=== PATIENT | male | born 1950 | race Caucasian/White ===

== ENCOUNTER 2019-12-14 22:02 | Inpatient (IN) | payer MEDICARE ==
[~2019-12-14] VITALS: Ht 193 cm; Wt 108.9 kg
--- OUTSIDE RECORDS SUMMARY | 2019-12-14 22:05 | XMS REPORT | Continuity of Care Document ---
Author Author [facility] t Organization [facility] Address [address] [place] [id number] Phone Unavailable Care Team Providers Care Promotional Marketing Agent Name Role Phone NONSTAFF PCP Unavailable Madhuri MARTINEZ Attwilder Unavailable Payers Payer Name Policy Type Policy Number Effective Date Expiration Date S cami Medicare A & B [id number] 1981 00:00:00 Star [facility] Problems This patient has no known problems. Allergies, Adverse Reactions, Alerts Allergy Name Allergy Type Status Severity Reaction(s) Onset Date Inacti ve Date Treating Clinician Comments Source Penicillins DA Active MO 2019-10-13 00:00:00 [facility] Penicillin Allergy to Substance Active 2019-04-25 00:00:00 [facility] Penicillins DA Active MO 2016-01-26 00:00:00 [facility] Medications This patient has no known medications. Procedures Procedure Date / Time Performed Performing Clinician Sour e Computed tomography of abdomen and pelvis with contrast 2018 00:00:00 NABOR HOYOS [facility] Encounters Start Date/Time End Date/Time Encounter Type Admission Type Attendi [facility] Facility Care Department Encounter ID Source 2019-04-25 12:42:00 2019-04-25 16:02:00 Departed Emergency Room 1 JOE MARTINEZ [facility] [id number] [facility] 2017-03-06 00:01:00 2017-03-06 00:01:00 Outpatient C [facility] [id number] [facility] 2017-02-03 00:01:00 2017-02-03 00:01:00 Outpatient [facility] [id number] [facility] 2017-01-03 00:01:00 2017-01-03 00:01:00 Outpatient [facility] [id number] [facility] 2016-12-04 00:01:00 2016-12-04 00:01:00 Outpatient [facility] [id number] [facility] 2016-11-25 13:00:00 2016-11-25 13:00:00 Outpatient [facility] [id number] [facility] Results Test Description Test Time Test Comments Results Result Comments Source - CT ABD PELVIS W/CONT 2019-10-13 22:39:00 Dmitriy e: NICOLAS HI [facility] : 1950 Age/S: 69 / M [address] [facility] Unit #: [id number] Loc: [place] [address] Phys: Daniela Sebastian [employer]TER Acct: [id number] Dis Date: Status: REG ER PHONE #: [phone] Exam Date: 10/13/2019 2210 FAX #: [phone] Reason: increased r hernia pain EXAMS: CPT CODE: [id number] CT ABD PELVIS W/CONT [id number] EXAM: CT ABDOMEN AND PELVIS WITH IV CONTRAST DICTATION LOCATION: 8 HISTORY: Male, 69 years of age with increasing right hernia pain TECHNIQUE: Contrast: Nonionic IV contrast was given. No GI contrast was given. Portal venous phase: Abdomen and pelvis Delayed phase: Abdomen and pelvis Reconstructions: Coronal and sagittal One or more of the following dose reduction techniques were used: Automated exposure control; adjustment of the mA and/or kV according to the patient size; and/or use of iterative reconstruction technique. COMPARISON: Previous CT chest abdomen and pelvis performed 01/26/2016 FINDINGS: Statements: Exam quality is acceptable. Lower thorax: Atelectasis seen in both lung bases. Calcified granuloma seen in the right middle lobe. Hepatobiliary: Liver is unremarkable except for multiple benign cysts measuring up to 3 cm diameter. No solid hepatic mass. The gallbladder is normal. No biliary dilation. Pancreas: Normal. Spleen: Normal. Adrenals: Normal. Genitourinary: No solid renal mass, significant cortical thinning, obvious renal stone or hydronephrosis. Ureters are unremarkable. Urinary bladder is unremarkable. The visualized reproductive organs are unremarkable. Gastrointestinal: No bowel wall thickening, bowel obstruction or perienteric inflammation. The appendix is normal. Vascular: Atherosclerotic calcifications are seen within the aorta and branch vessels. No aneurysm or dissection. IVC is unremarkable. Portal vein is patent. PAGE 1 Signed Report (CONTINUED) Name: NICOLAS HI [facility] : 1950 Age/S: 69 / M [address] [facility] Unit #: [id number] Loc: [place] [address] Phys: Daniela Sebastian NP Acct: [id number] Dis Date: Status: REG ER PHONE #: [phone] Exam Date: 10/13/20192209 FAX #: [phone] Reason: increased r hernia pain EXAMS: CPT CODE: [id number] CT ABD PELVIS W/CONT 07040 <Continued> Lymphatics: No enlarged lymph nodes by CT size criteria. Bones/Soft Tissues: No acute osseous findings. No ventral hernias. Peritoneum/Other: No free intraperitoneal air. Small amount of free fluid seen in posterior cul-de-sac. IMPRESSION: 1. Small amount of free fluid in pelvis. 2. No ventral hernias are identified. 3. Otherwise unremarkable CT abdomen and pelvis. at 2239 Reported and signed by: Erika Dillard MD CC: Reese Villagomez MD; Daniela Sebastian NP Technologist:Ivett JURADO(R); WAYNE Allen CTDI: DLP: Trnscb Date/Time: 10/13/2019 (2238) [email or web address] Orig Print D/T: S: 10/13/2019 (7380) PAGE 2 Signed Report BASIC METABOLIC PANEL 2019-10-13 21:52:00 Test Item SODIUM (test code = NA) 141 mmol/L 136-145 N POTASSIUM (test code = K) 4.0 mmol/L 3.5-5.1 N CHLORIDE (test code = CL) 106.0 mmol/L 98-107 N CARBON DIOXIDE (test code = CO2) 32.0 mmol/L 21-32 N ANION GAP (test code = GAP) 7.0 10-20 L GLUCOSE (test code = GLU) 106 mg/dL 74-106 N BLOOD UREA NITROGEN (test code = BUN) 18 mg/dL 7-18 N GLOMERULAR FILTRATION RATE (test code = GFR) > 60 mL/min >=60 Estimated GFR by using Modified MDRD formula.Chronic kidney disease is defined as either kidney damageor GFR <60 mL/min/1.73 m2 for >3 months. CREATININE (test code = CREAT) 1.10 mg/dL 0.7-1.3 N BUN/CREATININE RATIO (test code = BUN/CREA) 16.4 10-20 N CALCIUM (test code = CA) 8.2 mg/dL 8.5-10.1 L HEPATIC FUNCTION [id number] 21:52:00* Test Item Value Reference Range Interpretation Comments TOTAL PROTEIN (test code = PROT) 6.0 gram/dL 6.4-8.2 L ALBUMIN (test code = ALB) 2.9 g/dL 3.4-5.0 L GLOBULIN (test code = GLOB) 3.1 gram/dL 2.7-4.2 N ALBUMIN/GLOBULIN RATIO (test code = A/G) 0.9 0.75-1.50 N BILIRUBIN TOTAL (test code = BILT) 0.30 mg/dL 0.0-1.0 N BILIRUBIN DIRECT (test code = BILD) 0.07 mg/dL 0.0-0.20 N SGOT/AST (test code = AST) 11 IUnit/L 15-37 L SGPT/ALT (test code = ALT) 12 IUnit/L 12-78 N ALKALINE PHOSPHATASE TOTAL (test code = ALKP) 41 IUnit/L 45-117 L Note change in reference range due to change in reagent. [id number] 21:52:00* Test Item Value Reference Range Interpretation Comments LIPASE (test code = LIP) 50 U/L 73.0-393.0 L [id number] 21:52:00* Test Item Value Reference Range Interpretation Comments TROPONIN-I (test code = TROPI) <0.015 ng/mL 0-0.045 N BASIC METABOLIC [id number] 21:41:00* Test Item Value Reference Range Interpretation Comments SODIUM (test code = NA) 141 mmol/L 136-145 N POTASSIUM (test code = K) 4.0 mmol/L 3.5-5.1 N CHLORIDE (test code = CL) 106.0 mmol/L 98-107 N CARBON DIOXIDE (test code = CO2) mmol/L 21-32 ANION GAP (test code = GAP) 10-20 GLUCOSE (test code = GLU) mg/dL 74-106 BLOOD UREA NITROGEN (test code = BUN) mg/dL 7-18 GLOMERULAR FILTRATION RATE (test code = GFR) mL/min >=60 CREATININE (test code = CREAT) mg/dL 0.7-1.3 BUN/CREATININE RATIO (test code = BUN/CREA) 10-20 CALCIUM (test code = CA) mg/dL 8.5-10.1 HEPATIC FUNCTION [id number] 21:41:00* Test Item Value Reference Range Interpretation Comments TOTAL PROTEIN (test code = PROT) gram/dL 6.4-8.2 ALBUMIN (test code = ALB) g/dL 3.4-5.0 GLOBULIN (test code = GLOB) gram/dL 2.7-4.2 ALBUMIN/GLOBULIN RATIO (test code = A/G) 0.75-1.50 BILIRUBIN TOTAL (test code = BILT) mg/dL 0.0-1.0 BILIRUBIN DIRECT (test code = BILD) mg/dL 0.0-0.20 SGOT/AST (test code = AST) IUnit/L 15-37 SGPT/ALT (test code = ALT) IUnit/L 12-78 ALKALINE PHOSPHATASE TOTAL (test code = ALKP) IUnit/L 45-117 [id number] 21:41:00* Test Item Value Reference Range Interpretation Comments LIPASE (test code = LIP) U/L 73.0-393.0 [id number] 21:41:00* Test Item Value Reference Range Interpretation Comments TROPONIN-I (test code = TROPI) ng/mL 0-0.045 CBC W/O [id number] 21:36:00* Test Item Value Reference Range Interpretation Comments WHITE BLOOD CELL (test code = WBC) 7.8 K/mm3 4.5-12.5 N RED BLOOD CELL (test code = RBC) 3.71 mill/mm3 4.0-5.8 L HEMOGLOBIN (test code = HGB) 12.1 gram/dL 13.0-17.5 L HEMATOCRIT (test code = HCT) 36.1 % 42.0-52.0 L MEAN CELL VOLUME (test code = MCV) 97.3 fL 80-98 N MEAN CELL HGB (test code = MCH) 32.6 picogram 27.0-33.0 N MEAN CELL HGB CONCETRATION (test code = MCHC) 33.5 gram/dL 33.0-36. 0 N RED CELL DISTRIBUTION WIDTH (test code = RDW) 13.5 % 11.6-16. 2 N PLATELET COUNT (test code = PLT) 210 K/mm3 150-450 N MEAN PLATELET VOLUME (test code = MPV) 10.4 fL 6.7-11.0 N POC [id number] 19:03:55* Test Item Value Reference Range Interpretation Comments Glucose POC (test code = Glucose POC) 123 mg/dL 70-115 H If you consider your patient critically ill, the Ten-Accu Check Infrom II meter should not be used for Glucose determination. Draw a venous Glucose and send to the main Lab for analysis. POC [id number] 15:08:50* Test Item Value Reference Range Interpretation Comments Glucose POC (test code = Glucose POC) 117 mg/dL 70-115 H If you consider your patient critically ill, the Ten-Accu Check Infrom II meter should not be used for Glucose determination. Draw a venous Glucose and send to the main Lab for analysis. POC [id number] 06:15:26* Test Item Value Reference Range Interpretation Comments Glucose POC (test code = Glucose POC) 104 mg/dL 70-115 If you consider your patient critically ill, the Ten-Accu Check Infrom II meter should not be used for Glucose determination. Draw a venous Glucose and send to the main Lab for analysis. POC [id number] 14:57:24* Test Item Value Reference Range Interpretation Comments Glucose POC (test code = Glucose POC) 104 mg/dL 70-115 If you consider your patient critically ill, the Ten-Accu Check Infrom II meter should not be used for Glucose determination. Draw a venous Glucose and send to the main Lab for analysis. POC [id number] 11:08:56* Test Item Value Reference Range Interpretation Comments Glucose POC (test code = Glucose POC) 97 mg/dL 70-115 If you consider your patient critically ill, the Ten-Accu Check Infrom II meter should not be used for Glucose determination. Draw a venous Glucose and send to the main Lab for analysis. POC [id number] 06:29:51* Test Item Value Reference Range Interpretation Comments Glucose POC (test code = Glucose POC) 220 mg/dL 70-115 H If you consider your patient critically ill, the Ten-Accu Check Infrom II meter should not be used for Glucose determination. Draw a venous Glucose and send to the main Lab for analysis. POC [id number] 15:07:44* Test Item Value Reference Range Interpretation Comments Glucose POC (test code = Glucose POC) 127 mg/dL 70-115 H Notify RN or MDIf you consider your patient critically ill, the Ten-Accu Check Infrom II meter should not be used for Glucose determination. Draw a venous Glucose and send to the main Lab for analysis. POC [id number] 11:07:18* Test Item Value Reference Range Interpretation Comments Glucose POC (test code = Glucose POC) 119 mg/dL 70-115 H Notify RN or MDIf you consider your patient critically ill, the Ten-Accu Check Infrom II meter should not be used for Glucose determination. Draw a venous Glucose and send to the main Lab for analysis. POC [id number] 06:07:18* Test Item Value Reference Range Interpretation Comments Glucose POC (test code = Glucose POC) 96 mg/dL 70-115 If you consider your patient critically ill, the Ten-Accu Check Infrom II meter should not be used for Glucose determination. Draw a venous Glucose and send to the main Lab for analysis. POC [id number] 21:15:45* Test Item Value Reference Range Interpretation Comments Glucose POC (test code = Glucose POC) 150 mg/dL 70-115 H Notify RN or MDIf you consider your patient critically ill, the Ten-Accu Check Infrom II meter should not be used for Glucose determination. Draw a venous Glucose and send to the main Lab for analysis. POC [id number] 14:57:12* Test Item Value Reference Range Interpretation Comments Glucose POC (test code = Glucose POC) 124 mg/dL 70-115 H If you consider your patient critically ill, the Ten-Accu Check Infrom II meter should not be used for Glucose determination. Draw a venous Glucose and send to the main Lab for analysis. POC [id number] 06:10:12* Test Item Value Reference Range Interpretation Comments Glucose POC (test code = Glucose POC) 114 mg/dL 70-115 If you consider your patient critically ill, the Ten-Accu Check Infrom II meter should not be used for Glucose determination. Draw a venous Glucose and send to the main Lab for analysis. POC [id number] 19:24:17* Test Item Value Reference Range Interpretation Comments Glucose POC (test code = Glucose POC) 189 mg/dL 70-115 H If you consider your patient critically ill, the Ten-Accu Check Infrom II meter should not be used for Glucose determination. Draw a venous Glucose and send to the main Lab for analysis. POC [id number] 15:15:06* Test Item Value Reference Range Interpretation Comments Glucose POC (test code = Glucose POC) 135 mg/dL 70-115 H If you consider your patient critically ill, the Ten-Accu Check Infrom II meter should not be used for Glucose determination. Draw a venous Glucose and send to the main Lab for analysis. POC [id number] 10:53:42* Test Item Value Reference Range Interpretation Comments Glucose POC (test code = Glucose POC) 130 mg/dL 70-115 H If you consider your patient critically ill, the Ten-Accu Check Infrom II meter should not be used for Glucose determination. Draw a venous Glucose and send to the main Lab for analysis. Thyroid Stimulating [id number] 10:02:12* Test Item Value Reference Range Interpretation Comments TSH (test code = TSH) 2.550 mIU/mL 0.270-4.200 Lipid [id number] 09:52:03* Test Item Value Reference Range Interpretation Comments Cholesterol Total (test code = Cholesterol Total) 128 mg/dL 0-20 0 RISK OF HEART DISEASEPublished by [place] Heart Association Analyte Optimal Borderline Increased RiskCHOL <200 200-239 >240TRIG <150 150-199 >200HDL Male >60 <40HDL Female >60 <50LDL <100 130-159 >160LDL Near optimal is 100-129 Triglycerides (test code = Triglycerides) 83 mg/dL 9-200 HDL (test code = HDL) 54 mg/dL 40-60 LDL (test code = LDL) 57 mg/dL 0-130 The eq uation being used in this calculation is LDL = (Chol - HDL) - (Trig / 5) VLDL (test code = VLDL) 17 mg/dL 5-40 The equation being used in this calculation is VLDL = Trig / 5 Chol/HDL (test code = Chol/HDL) 2.4 ratio 0.0-5.0 LDL/HDL Ratio (test code = LDL/HDL Ratio) 1 N The equation being used in this calculation is LDL/HDL Ratio=LDL Calc/HDL Chol POC [id number] 06:03:08* Test Item Value Reference Range Interpretation Comments Glucose POC (test code = Glucose POC) 97 mg/dL 70-115 If you consider your patient critically ill, the Ten-Accu Check Infrom II meter should not be used for Glucose determination. Draw a venous Glucose and send to the main Lab for analysis. POC [id number] 19:23:12* Test Item Value Reference Range Interpretation Comments Glucose POC (test code = Glucose POC) 140 mg/dL 70-115 H Notify RN or MDIf you consider your patient critically ill, the Ten-Accu Check Infrom II meter should not be used for Glucose determination. Draw a venous Glucose and send to the main Lab for analysis. POC [id number] 15:11:08* Test Item Value Reference Range Interpretation Comments Glucose POC (test code = Glucose POC) 133 mg/dL 70-115 H If you consider your patient critically ill, the Ten-Accu Check Infrom II meter should not be used for Glucose determination. Draw a venous Glucose and send to the main Lab for analysis. POC [id number] 10:33:33* Test Item Value Reference Range Interpretation Comments Glucose POC (test code = Glucose POC) 90 mg/dL 70-115 If you consider your patient critically ill, the Ten-Accu Check Infrom II meter should not be used for Glucose determination. Draw a venous Glucose and send to the main Lab for analysis. POC [id number] 19:20:07* Test Item Value Reference Range Interpretation Comments Glucose POC (test code = Glucose POC) 151 mg/dL 70-115 H If you consider your patient critically ill, the Ten-Accu Check Infrom II meter should not be used for Glucose determination. Draw a venous Glucose and send to the main Lab for analysis. POC [id number] 14:48:31* Test Item Value Reference Range Interpretation Comments Glucose POC (test code = Glucose POC) 119 mg/dL 70-115 H If you consider your patient critically ill, the Ten-Accu Check Infrom II meter should not be used for Glucose determination. Draw a venous Glucose and send to the main Lab for analysis. RPR [id number] 14:35:14* Test Item Value Reference Range Interpretation Comments RPR Qual (test code = RPR Qual) Non-Reactive Non-Reactive Reactive Control (test code = Reactive Control) Reactive Weak Reactive Control (test code = Weak Reactive Control) Weak Reac tive Non-Reactive Control (test code = Non-Reactive Control) Non-Reactiv e Lot # (test code = Lot #) [id number] N Expiration Dt (test code = Expiration Dt) 05-05-20 N POC [id number] 10:49:39* Test Item Value Reference Range Interpretation Comments Glucose POC (test code = Glucose POC) 124 mg/dL 70-115 H If you consider your patient critically ill, the Ten-Accu Check Infrom II meter should not be used for Glucose determination. Draw a venous Glucose and send to the main Lab for analysis. POC [id number] 05:34:08* Test Item Value Reference Range Interpretation Comments Glucose POC (test code = Glucose POC) 108 mg/dL 70-115 If you consider your patient critically ill, the Ten-Accu Check Infrom II meter should not be used for Glucose determination. Draw a venous Glucose and send to the main Lab for analysis. POC [id number] 01:57:02* Test Item Value Reference Range Interpretation Comments Glucose POC (test code = Glucose POC) 94 mg/dL 70-115 If you consider your patient critically ill, the Ten-Accu Check Infrom II meter should not be used for Glucose determination. Draw a venous Glucose and send to the main Lab for analysis. Alcohol [id number] 22:17:13* Test Item Value Reference Range Interpretation Comments Ethanol Level (test code = Ethanol Level) <0.00 g/dL 0.00-0.01 Intoxicated 0.080 g/dL or more Ethanol Inst (test code = Ethanol Inst) <0 N Comprehensive Metabolic [id number] 22:17:12* Test Item Value Reference Range Interpretation Comments Sodium Level (test code = Sodium Level) 135.0 mmol/L 135.0-145.0 Potassium Level (test code = Potassium Level) 4.1 mmol/L 3.5-5.1 Chloride Level (test code = Chloride Level) 95 mmol/L 98-105 L CO2 (test code = CO2) 34 mmol/L 22-29 H Anion Gap (test code = Anion Gap) 6 mmol/L 7-16 L BUN (test code = BUN) 10.20 mg/dL 8.00-23.00 Creatinine Level (test code = Creatinine Level) 1.10 mg/dL 0.70-1 .20 BUN/Creat Ratio (test code = BUN/Creat Ratio) 9 N Glucose Level (test code = Glucose Level) 94 mg/dL 70-115 Calcium Level (test code = Calcium Level) 9.1 mg/dL 8.3-10.5 Alk Phos (test code = Alk Phos) 50 U/L 40-129 Bilirubin Total (test code = Bilirubin Total) 0.4 mg/dL 0.1-0.9 Albumin Level (test code = Albumin Level) 4.4 g/dL 3.5-5.2 Protein Total (test code = Protein Total) 6.7 g/dL 6.4-8.3 ALT (test code = ALT) 12 U/L 1-41 AST (test code = AST) 18 U/L 1-40 Globulin (test code = Globulin) 2.3 g/dL 2.9-3.1 L A/G Ratio (test code = A/G Ratio) 1.9 ratio N Comprehensive Metabolic [id number] 22:17:12* Test Item Value Reference Range Interpretation Comments Sodium Level (test code = Sodium Level) 135.0 mmol/L 135.0-145.0 Potassium Level (test code = Potassium Level) 4.1 mmol/L 3.5-5.1 Chloride Level (test code = Chloride Level) 95 mmol/L 98-105 L CO2 (test code = CO2) 34 mmol/L 22-29 H Anion Gap (test code = Anion Gap) 6 mmol/L 7-16 L BUN (test code = BUN) 10.20 mg/dL 8.00-23.00 Creatinine Level (test code = Creatinine Level) 1.10 mg/dL 0.70-1 .20 BUN/Creat Ratio (test code = BUN/Creat Ratio) 9 N Glucose Level (test code = Glucose Level) 94 mg/dL 70-115 Calcium Level (test code = Calcium Level) 9.1 mg/dL 8.3-10.5 Alk Phos (test code = Alk Phos) 50 U/L 40-129 Bilirubin Total (test code = Bilirubin Total) 0.4 mg/dL 0.1-0.9 Albumin Level (test code = Albumin Level) 4.4 g/dL 3.5-5.2 Protein Total (test code = Protein Total) 6.7 g/dL 6.4-8.3 ALT (test code = ALT) 12 U/L 1-41 AST (test code = AST) 18 U/L 1-40 Globulin (test code = Globulin) 2.3 g/dL 2.9-3.1 L A/G Ratio (test code = A/G Ratio) 1.9 ratio N eGFR AA (test code = eGFR AA) >60 mL/min/1.73 m2 N eGFR (estimated Glomerular Filtration Rate) is an estimated value, calculated from the patient's serum creatinine using the MDRD equation. It is NOT the patient's actual GFR. The eGFR provides a more clinically useful measure of kidney disease than serum creatinine alone.This calculation takes sex and race into account, if the information is provided. If the race is not provided, and the patient is -[place], multiply by 1.212. If sex is not provided, and the patient is female, multiply by 0.742. Results for patients <18 years of age have not been validated by the MDRD study and should be interpreted with caution. eGFR Result Interpretation:eGFR > or = 60 is in the Normal RangeeGFR < 60 may mean kidney diseaseeGFR < 15 may mean kidney failure Ranges recommended by the National Kidney Foundation, http://nkdep.nih.gov Comprehensive Metabolic [id number] 22:17:12* Test Item Value Reference Range Interpretation Comments Sodium Level (test code = Sodium Level) 135.0 mmol/L 135.0-145.0 Potassium Level (test code = Potassium Level) 4.1 mmol/L 3.5-5.1 Chloride Level (test code = Chloride Level) 95 mmol/L 98-105 L CO2 (test code = CO2) 34 mmol/L 22-29 H Anion Gap (test code = Anion Gap) 6 mmol/L 7-16 L BUN (test code = BUN) 10.20 mg/dL 8.00-23.00 Creatinine Level (test code = Creatinine Level) 1.10 mg/dL 0.70-1 .20 BUN/Creat Ratio (test code = BUN/Creat Ratio) 9 N Glucose Level (test code = Glucose Level) 94 mg/dL 70-115 Calcium Level (test code = Calcium Level) 9.1 mg/dL 8.3-10.5 Alk Phos (test code = Alk Phos) 50 U/L 40-129 Bilirubin Total (test code = Bilirubin Total) 0.4 mg/dL 0.1-0.9 Albumin Level (test code = Albumin Level) 4.4 g/dL 3.5-5.2 Protein Total (test code = Protein Total) 6.7 g/dL 6.4-8.3 ALT (test code = ALT) 12 U/L 1-41 AST (test code = AST) 18 U/L 1-40 Globulin (test code = Globulin) 2.3 g/dL 2.9-3.1 L A/G Ratio (test code = A/G Ratio) 1.9 ratio N eGFR AA (test code = eGFR AA) >60 mL/min/1.73 m2 N eGFR (estimated Glomerular Filtration Rate) is an estimated value, calculated from the patient's serum creatinine using the MDRD equation. It is NOT the patient's actual GFR. The eGFR provides a more clinically useful measure of kidney disease than serum creatinine alone.This calculation takes sex and race into account, if the information is provided. If the race is not provided, and the patient is -[place], multiply by 1.212. If sex is not provided, and the patient is female, multiply by 0.742. Results for patients <18 years of age have not been validated by the MDRD study and should be interpreted with caution. eGFR Result Interpretation:eGFR > or = 60 is in the Normal RangeeGFR < 60 may mean kidney diseaseeGFR < 15 may mean kidney failure Ranges recommended by the National Kidney Foundation, http://nkdep.nih.gov eGFR Non-AA (test code = eGFR Non-AA) >60.00 mL/min/1.73 m2 N eGFR (estimated Glomerular Filtration Rate) is an estimated value, calculated from the patient's serum creatinine using the MDRD equation. It is NOT the patient's actual GFR. The eGFR provides a more clinically useful measure of kidney disease than serum creatinine alone.This calculation takes sex and race into account, if the information is provided. If the race is not provided, and the patient is -[place], multiply by 1.212. If sex is not provided, and the patient is female, multiply by 0.742. Results for patients <18 years of age have not been validated by the MDRD study and should be interpreted with caution. eGFR Result Interpretation:eGFR > or = 60 is in the Normal RangeeGFR < 60 may mean kidney diseaseeGFR < 15 may mean kidney failure Ranges recommended by the National Kidney Foundation, http://nkdep.nih.gov Urine Drug Bmayct0528-20-65 22:03:54* Test Item Value Reference Range Interpretation Comments Amphetamine Screen Ur (test code = Amphetamine Screen Ur) Negative Negative Barbiturate Screen Ur (test code = Barbiturate Screen Ur) Negative Negative Benzodiazepines Ur (test code = Benzodiazepines Ur) Negative Ne gative Cocaine Screen Ur (test code = Cocaine Screen Ur) Negative Nega tive U Methadone Scr (test code = U Methadone Scr) Negative Negative Opiate Screen Ur (test code = Opiate Screen Ur) Negative Negati ve U PCP Scrn (test code = U PCP Scrn) Negative Negative Cannabinoid Screen Ur (test code = Cannabinoid Screen Ur) Negative Negative U TCA (test code = U TCA) Negative Negative Th e results of all drug screen tests are only preliminary. Clinical consideration and professional judgment should be applied to any drug of abuse test result, particularly when preliminary positive results are obtained. Please order a separate confirmatory test if desired. Urinalysis with Microscopic if qfqfuynce0109-75-15 21:43:47* Test Item Value Reference Range Interpretation Comments UA Color (test code = UA Color) YELLO Yellow UA Appear (test code = UA Appear) CLEAR Clear UA pH (test code = UA pH) 7 N UA Spec Grav (test code = UA Spec Grav) 1.010 1.001-1.035 UA Glucose (test code = UA Glucose) NEG Negative UA Ketones (test code = UA Ketones) NEG Negative UA Blood (test code = UA Blood) NEG Negative UA Protein (test code = UA Protein) NEG Negative UA Bili (test code = UA Bili) NEG Negative UA Urobilinogen (test code = UA Urobilinogen) 0.2 mg/dL N UA Nitrite (test code = UA Nitrite) NEG Negative UA Leuk Est (test code = UA Leuk Est) NEG Negative UA Micro Ind? (test code = UA Micro Ind?) Not Indicated Not Indicat ed Result created by rule GL_SJM_UA_MICRO_IND Automated Xvkgxxsbggxm9159-22-69 21:36:14* Test Item Value Reference Range Interpretation Comments Neutro Auto (test code = Neutro Auto) 53.6 % 36.0-70.0 Lymph Auto (test code = Lymph Auto) 30.0 % 12.0-44.0 Frontier Auto (test code = Frontier Auto) 7.4 % 0.0-11.0 Eos, Auto (test code = Eos, Auto) 7.8 % 0.0-7.0 H Basophil Auto (test code = Basophil Auto) 0.8 % 0.0-2.0 Neutro Absolute (test code = Neutro Absolute) 2.8 x10 1.6-7.4 Lymph Absolute (test code = Lymph Absolute) 1.57 x10 .50-4.60 Frontier Absolute (test code = Frontier Absolute) .39 x10 .00-1.20 Eos Absolute (test code = Eos Absolute) 0.41 x10 0.00-0.74 Baso Absolute (test code = Baso Absolute) 0.04 x10 0.00-0.21 IG Uhobu5571-67-14 21:36:14* Test Item Value Reference Range Interpretation Comments IG (test code = IG) 0.4 % 0.0-5.0 IG Abs (test code = IG Abs) 0 x10 N Complete Blood Count with Igokqjklmppg6662-96-73 21:36:13* Test Item Value Reference Range Interpretation Comments WBC (test code = WBC) 5.2 x10 4.4-10.5 RBC (test code = RBC) 3.96 x10 4.10-5.70 L Hgb (test code = Hgb) 12.8 g/dL 13.4-17.4 L Hct (test code = Hct) 39.7 % 38.7-52.0 MCV (test code = MCV) 100.30 fL 80.00-100.00 H MCHC (test code = MCHC) 32.20 g/dL 32.00-37.50 RDW CV (test code = RDW CV) 13.5 % 11.5-14.5 MCH (test code = MCH) 32.3 pg 27.0-32.5 Platelets (test code = Platelets) 210.0 x10 140.0-440.0 MPV (test code = MPV) 10.4 fL N Slide Review (test code = Slide Review) Auto Auto Result created by GL_SJM_SLIDE_REV_AUTO nRBC (test code = nRBC) 0 N NRBC Abs (test code = NRBC Abs) 0.00 x10 N IPF (test code = IPF) 0 % N CT ABDOMEN/PELVIS [id number] 14:54:00 [place] [address] Patient Name: NICOLAS HI MR #: [id number] : 1950 Age/Sex: 68/M Req #: [id number] Adm Physician: Ordered by: NABOR HOYOS NP Report #: [id number] Location: ER Room/Bed: Procedure: [id number] CT/CT ABDOMEN/PELVIS W Exam Date: Exam Time: REPORT STATUS: Signed EXAM: CT Abdomen and Pelvis WITH intravenous contrast INDICATION: Abdominal pain, hernia COMPARISON: None. TECHNIQUE: Abdomen and pelvis were scanned utilizing a mu ltidetector helical scanner from the lung base to the pubic symphysis after ad ministration of IV contrast. Coronal and sagittal reformations were obtained. Routine protocol was performed. Scan was performed during portal venous phase. IV CONTRAST: 100mL of Isovue 370 ORAL CONTRAST: Water RADIATION DOSE: Total DLP: 367.98 mGy*cm Dose modulation, iterative reconstructi on, and/or weight based adjustment of the mA/kV was utilized to reduce the rad iation dose to as low as reasonably achievable. FINDINGS: LOWER THORAX : Mild bibasilar dependent subsegmental atelectasis. HEPATOBILIARY: Diffuse hepatic steatosis. Numerous hypodense lesions throughout the liver, the large st of which is compatible with a simple cyst and measures 3.3 cm (series 2 mekhi ge 18). The smaller subcentimeter hypodensities are nonspecific but also likel y represent cysts. SPLEEN: No splenomegaly. PANCREAS: No focal masses or ductal dilatation. ADRENALS: No adrenal nodules. KIDNEYS/URETERS: No h ydronephrosis, stones, or solid mass lesions. PELVIC ORGANS/BLADDER: Unremarka ble. PERITONEUM / RETROPERITONEUM: No free air or fluid. LYMPH NODES: No lymphadenopathy. VESSELS: Diffuse atherosclerotic calcifications of the nonane urysmal abdominal aorta and major branches. GI TRACT: No abnormal bowel w all thickening. No bowel obstruction. Normal appendix. BONES AND SOFT TIS SUES: Small fat-containing bilateral inguinal hernias without herniated bowel. No acute osseous injury. No suspicious lytic or blastic lesions. IMPRESS ION: Small fat-containing bilateral inguinal hernias with no herniated bowel. Diffuse hepatic steatosis. Multiple hypodensities in the liver likely re presenting cysts. Signed by: Joan Patel MD on 04/25/2019 3:00 PM Dictated By: JOAN PATEL MD 1500 COPY TO: Fanny HOYOS [employer] Urine [id number] 13:53:00* Test Item Value Reference Range Interpretation Comments Urine WBC (test code = 5821-4) 0-5 0-5 [facility] [id number] 13:53:00* Test Item Value Reference Range Interpretation Comments Urine RBC (test code = 68679-0) NONE 0-5 [facility] Oamtzmjf3537-46-30 13:53:00* Test Item Value Reference Range Interpretation Comments Urine Bacteria (test code = 70737-1) RARE NONE [facility] Epithelial Mddki0084-04-99 13:53:00 * Test Item Value Reference Range Interpretation Comments Urine Epithelial Cells (test code = 44767-0) FEW NONE [facility] Bkykb9238-97-48 13:48:00* Test Item Value Reference Range Interpretation Comments Sodium Level (test code = 2951-2) 136 136-145 [facility] Aqqir1354-82-54 13:48:00* Test Item Value Reference Range Interpretation Comments Potassium Level (test code = 2823-3) 4.1 3.5-5.1 [facility] CenterChloride Kqcjd6457-03-54 13:48:00* Test Item Value Reference Range Interpretation Comments Chloride Level (test code = 2075-0) 96 98-107 L [facility] CenterCarbon Dioxide Lbobo7135-38-35 13:48:00* Test Item Value Reference Range Interpretation Comments Carbon Dioxide Level (test code = 2028-9) 31 22-29 H [facility] CenterAnion Lvy8337-68-66 13:48:00* Test Item Value Reference Range Interpretation Comments Anion Gap (test code = 62538-3) 13.1 8-16 [facility] Urea Pxexpoxf8903-18-44 13:48:00* Test Item Value Reference Range Interpretation Comments Blood Urea Nitrogen (test code = 3094-0) 17 7-26 [facility] CenterCreatinine2019-10-21 13:48:00* Test Item Value Reference Range Interpretation Comments Creatinine (test code = 2160-0) 0.99 0.72-1.25 [facility]BUN/Creatinine Kcxfz0164-60-90 13:48:00* Test Item Value Reference Range Interpretation Comments BUN/Creatinine Ratio (test code = 3097-3) 17 6-25 [facility] CenterEstimat Glomerular Filtration Rate 2019-04-25 13:48:00* Test Item Value Reference Range Interpretation Comments Estimat Glomerular Filtration Rate (test code = 340549655) > 60 >60 Ranges were taken from the National Kidney Disease Education Program and the [place] on [facility] Kidney Foundation literature.Reference ranges:60 or greater: Ybqllr79-94 ( for 3 consecutive months): Chronic kidney disease 15 or less: Kidney failureBaylor University Medical CenterGlucose Ujsmu8916-72-06 13:48:00* Test Item Value Reference Range Interpretation Comments Glucose Level (test code = RUS6840) 90 74-118 [facility] CenterCalcium Gkyie3015-02-13 13:48:00* Test Item Value Reference Range Interpretation Comments Calcium Level (test code = 15124-0) 9.0 8.4-10.2 [facility] CenterTotal Zsdjmrujv7535-40-71 13:48:00* Test Item Value Reference Range Interpretation Comments Total Bilirubin (test code = 1975-2) 0.2 0.2-1.2 [facility] CenterAspartate Amino Transf (AST/SGOT) 2019-04-25 13:48:00* Test Item Value Reference Range Interpretation Comments Aspartate Amino Transf (AST/SGOT) (test code = Aspartate Amino Transf (AST/SGOT)) 19 5-34 [facility] CenterAlanine Aminotransferase (ALT/SGPT) 2019-04-25 13:48:00* Test Item Value Reference Range Interpretation Comments Alanine Aminotransferase (ALT/SGPT) (test code = 1742-6) 13 0-55 [facility] CenterTotal Deddlev3579-80-68 13:48:00* Test Item Value Reference Range Interpretation Comments Total Protein (test code = 2885-2) 6.5 6.5-8.1 [facility] CenterAlbumin2019-10-21 13:48:00* Test Item Value Reference Range Interpretation Comments Albumin (test code = 1751-7) 3.5 3.5-5.0 [facility] CenterGlobulin2019-10-21 13:48:00* Test Item Value Reference Range Interpretation Comments Globulin (test code = 90808-2) 3.0 2.3-3.5 [facility] CenterAlbumin/Globulin Nfpku4930-76-61 13:48:00 * Test Item Value Reference Range Interpretation Comments Albumin/Globulin Ratio (test code = 1759-0) 1.2 0.8-2.0 [facility] CenterAlkaline Uaujpkcmuuu8063-74-71 13:48:00* Test Item Value Reference Range Interpretation Comments Alkaline Phosphatase (test code = 6768-6) 47 40-150 [facility] CenterUrine Wzgdm0662-58-91 13:31:00* Test Item Value Reference Range Interpretation Comments Urine Color (test code = 5778-6) YELLOW YELLOW [facility] CenterU[facility] Sbdtadv3052-17-72 13:31:00* Test Item Value Reference Range Interpretation Comments Urine Clarity (test code = 19501-4) CLEAR CLEAR [facility] CenterU[facility] Specific Rhtuhof7430-03-92 13:31:00 * Test Item Value Reference Range Interpretation Comments Urine Specific [place] (test code = 5811-5) 1.025 1.010-1.02 5 [facility] CenterU[facility] nO0065-11-39 13:31:00* Test Item Value Reference Range Interpretation Comments Urine pH (test code = 31617-0) 6 5-7 [facility] Center[facility] Leukocyte Rmidgppx5056-39-52 13:31:00* Test Item Value Reference Range Interpretation Comments Urine Leukocyte Esterase (test code = 01933-4) NEGATIVE NEGATIV E [facility] CenterU[facility] Pplbjtj8880-48-65 13:31:00* Test Item Value Reference Range Interpretation Comments Urine Nitrite (test code = 55160-4) NEGATIVE NEGATIVE [facility] CenterU[facility] Gqghqzd0160-37-64 13:31:00* Test Item Value Reference Range Interpretation Comments Urine Protein (test code = 19058-7) NEGATIVE NEGATIVE [facility] CenterUrine Glucose (UA)2019-04-25 13:31:00* Test Item Value Reference Range Interpretation Comments Urine Glucose (UA) (test code = 66484-7) NEGATIVE NEGATIVE [facility] CenterU[facility] Xjkwufe2332-37-80 13:31:00* Test Item Value Reference Range Interpretation Comments Urine Ketones (test code = 58272-5) NEGATIVE NEGATIVE [facility] CenterU[facility] Lighqfugzrgr6910-40-73 13:31:00* Test Item Value Reference Range Interpretation Comments Urine Urobilinogen (test code = 01658-1) 1 0.2-1 [facility] CenterU[facility] Myhngqzqi8374-51-61 13:31:00* Test Item Value Reference Range Interpretation Comments Urine Bilirubin (test code = 1977-8) NEGATIVE NEGATIVE [facility] CenterU[facility] Aadpw0084-13-37 13:31:00* Test Item Value Reference Range Interpretation Comments Urine Blood (test code = 25727-0) TRACE NEGATIVE [facility] CenterWhite Blood Mevby0066-53-79 13:29:00* Test Item Value Reference Range Interpretation Comments White Blood Count (test code = 6690-2) 3.68 4.8-10.8 L [facility] CenterRed Blood Yiwqw8882-61-00 13:29:00* Test Item Value Reference Range Interpretation Comments Red Blood Count (test code = 789-8) 4.13 4.3-5.7 L [facility] CenterHemoglobin2019-10-21 13:29:00* Test Item Value Reference Range Interpretation Comments Hemoglobin (test code = 15418-6) 13.6 14.0-18.0 L [facility] CenterHematocrit2019-10-21 13:29:00* Test Item Value Reference Range Interpretation Comments Hematocrit (test code = 4544-3) 40.1 38.2-49.6 [facility] CenterMean Corpuscular Ehjufb1736-87-60 13:29:00* Test Item Value Reference Range Interpretation Comments Mean Corpuscular Volume (test code = 787-2) 97.1 81-99 [facility] CenterMean Corpuscular Ossvmogqaa0814-84-92 13:29:00* Test Item Value Reference Range Interpretation Comments Mean Corpuscular Hemoglobin (test code = 785-6) 32.9 28-32 H [facility] CenterMean Corpuscular Hemoglobin Concent 2019-04-25 13:29:00* Test Item Value Reference Range Interpretation Comments Mean Corpuscular Hemoglobin Concent (test code = 786-4) 33.9 31-35 [facility] CenterRed Cell Distribution Yymwm4766-63-77 13:29:00* Test Item Value Reference Range Interpretation Comments Red Cell Distribution Width (test code = 68339-3) 12.9 11.7 -14.4 [facility] CenterPlatelet Ncwge5249-69-21 13:29:00* Test Item Value Reference Range Interpretation Comments Platelet Count (test code = 777-3) 147 140-360 [facility] CenterNeutrophils (%) (Auto)2019-04-25 13:29:00 * Test Item Value Reference Range Interpretation Comments Neutrophils (%) (Auto) (test code = 27460-0) 57.0 38.7-80.0 [facility] CenterLymphocytes (%) (Auto)2019-04-25 13:29:00 * Test Item Value Reference Range Interpretation Comments Lymphocytes (%) (Auto) (test code = 736-9) 30.2 18.0-39.1 [facility] CenterMonocytes (%) (Auto)2019-04-25 13:29:00* Test Item Value Reference Range Interpretation Comments Monocytes (%) (Auto) (test code = 5905-5) 9.5 4.4-11.3 [facility] CenterEosinophils (%) (Auto)2019-04-25 13:29:00 * Test Item Value Reference Range Interpretation Comments Eosinophils (%) (Auto) (test code = 713-8) 2.7 0.0-6.0 [facility] CenterBasophils (%) (Auto)2019-04-25 13:29:00* Test Item Value Reference Range Interpretation Comments Basophils (%) (Auto) (test code = 706-2) 0.3 0.0-1.0 [facility] CenterIM GRANULOCYTES %2019-04-25 13:29:00* Test Item Value Reference Range Interpretation Comments IM GRANULOCYTES % (test code = IM GRANULOCYTES %) 0.3 0.0- 1.0 [facility] CenterNeutrophils # (Auto)2019-04-25 13:29:00* Test Item Value Reference Range Interpretation Comments Neutrophils # (Auto) (test code = 751-8) 2.1 2.1-6.9 [facility] CenterLymphocytes # (Auto)2019-04-25 13:29:00* Test Item Value Reference Range Interpretation Comments Lymphocytes # (Auto) (test code = 87802-6) 1.1 1.0-3.2 [facility] CenterMonocytes # (Auto)2019-04-25 13:29:00* Test Item Value Reference Range Interpretation Comments Monocytes # (Auto) (test code = 742-7) 0.4 0.2-0.8 [facility] CenterEosinophils # (Auto)2019-04-25 13:29:00* Test Item Value Reference Range Interpretation Comments Eosinophils # (Auto) (test code = 711-2) 0.1 0.0-0.4 [facility] CenterBasophils # (Auto)2019-04-25 13:29:00* Test Item Value Reference Range Interpretation Comments Basophils # (Auto) (test code = 704-7) 0.0 0.0-0.1 [facility] CenterAbsolute Immature Granulocyte (auto 2019-04-25 13:29:00* Test Item Value Reference Range Interpretation Comments Absolute Immature Granulocyte (auto (marisela t code = Absolute Immature Granulocyte (auto) 0.01 0-0.1 [facility]
--- NOTE | 2019-12-14 22:28 | Emergency Department Note ---
History of Present Illnes History of Present Illness Chief Complaint: Abdominal Complaints History of Present Illness This is a 69 year old male PMH of schizo-affective d/o brought by care-clinical support nurse for increasing pain in the R inguinal region. Patient unable to f/u with surgery as previously instructed . States that pain has been increasing in the last 24 hours .Denies f/c/n/v Historian: Patient Arrival Mode: Car History limited by: developmental delay Onset (how long ago): week(s) (6) Radiation: Reports abdomen Severity: moderate Onset quality: gradual Duration (how long): week(s) (6) Timing of current episode: constant Progression: worsening Chronicity: recurrent Context: Reports recent illness Relieving factors: none Exacerbating factors: none Associated symptoms: Reports denies other symptoms Treatments prior to arrival: none Previous service: one or more referrals, re-evaluation Past Medical/Family History Physician Review I have reviewed the patient's past medical and family history. Any updates have been documented here. Past Medical History Recent Fever: No Clinical Suspicion of Infectio: No New/Unexplained Change in Ment: No Past Medical History: Hypertension, Depression, Other Mental Illness Other Medical History: SCHIZOPHRENIA Past Surgical History: None Other Surgery: Unknown surgical history-pt poor historian. Social History Smoking Cessation: Never Smoker Alcohol Use: None Any Illegal Drug Use: No Other Last Tetanus: UTD Review of Systems Review of Systems Constitutional: Reports no symptoms EENTM: Reports no symptoms Cardiovascular: Reports no symptoms Respiratory: Reports no symptoms Gastrointestinal: Reports abdominal pain Genitourinary: Reports no symptoms Musculoskeletal: Reports no symptoms Integumentary: Reports no symptoms Neurological: Reports no symptoms Psychological: Reports no symptoms Endocrine: Reports no symptoms Hematological/Lymphatic: Reports no symptoms Review of other systems All other systems reviewed and negative. Physical Exam Related Data Allergies: Coded Allergies: Penicillins (Verified Allergy, Unknown, 04/25/19) Triage Vital Signs Vital Signs Date Time Temp Pulse Resp B/P (MAP) Pulse Ox O2 Delivery O2 Flow Rate FiO2 12/14/19 22:05 99.1 64 18 109/70 95 Vital signs reviewed: Yes Physical Exam CONSTITUTIONAL Constitutional: Reports well-developed, Reports well-nourished HENT HENT: Reports normocephalic, Reports atraumatic, Reports oropharynx clear/moist, Reports nose normal HENT L/R: Reports left ext ear normal, Reports right ext ear normal EYES Eyes: Reports PERRL, Reports conjunctivae normal NECK Neck: Reports ROM normal PULMONARY Pulmonary: Reports effort normal, Reports breath sounds normal CARDIOVASCULAR Cardiovascular: Reports regular rhythm, Reports heart sounds normal, Reports capillary refill normal, Reports normal rate GASTROINTESTINAL Abdominal: Reports other (obvious R inguinal hernia moderate size. ) GENITOURINARY Genitourinary: Reports exam deferred SKIN Skin: Reports warm, Reports dry MUSCULOSKELETAL Musculoskeletal: Reports ROM normal NEUROLOGICAL Neurological: Reports alert, Reports oriented x 3, Reports no gross motor or s ensory deficits PSYCHOLOGICAL Psychological: Reports mood/affect normal, Reports judgement normal Results Laboratory Lab results reviewed: Yes Laboratory comments Laboratory Tests Test 12/15/19 02:37 12/14/19 22:57 12/14/19 22:44 Urine Color Yellow (YELLOW) Urine Clarity Clear (CLEAR) Urine pH 5.5 (5 - 7) Urine Specific [place] >=1.030 (1.010-1.025) Urine Protein Negative (NEGATIVE) Urine Glucose (UA) Negative (NEGATIVE) Urine Ketones Negative (NEGATIVE) Urine Blood Negative (NEGATIVE) Urine Nitrite Negative (NEGATIVE) Urine Bilirubin Small (NEGATIVE) Urine Urobilinogen 1 mg/dL (0.2 - 1) Urine Leukocyte Esterase Negative (NEGATIVE) Urine RBC 0-5 /HPF (0-5) Urine WBC 0-5 /HPF (0-5) Urine Epithelial Cells Few /LPF (NONE) Urine Bacteria Moderate /HPF (NONE) Urine Mucus Many (RARE) White Blood Count 8.09 x10e3/uL (4.8-10.8) Red Blood Count 4.07 x10e6/uL (4.3-5.7) Hemoglobin 12.8 g/dL (14.0-18.0) Hematocrit 40.1 % (38.2-49.6) Mean Corpuscular Volume 98.5 fL (81-99) Mean Corpuscular Hemoglobin 31.4 pg (28-32) Mean Corpuscular Hemoglobin Concent 31.9 g/dL (31-35) Red Cell Distribution Width 13.5 % (11.7-14.4) Platelet Count 206 x10e3/uL (140-360) Neutrophils (%) (Auto) 57.8 % (38.7-80.0) Lymphocytes (%) (Auto) 24.6 % (18.0-39.1) Monocytes (%) (Auto) 6.3 % (4.4-11.3) Eosinophils (%) (Auto) 10.5 % (0.0-6.0) Basophils (%) (Auto) 0.4 % (0.0-1.0) Neutrophils # (Auto) 4.7 (2.1-6.9) Lymphocytes # (Auto) 2.0 (1.0-3.2) Monocytes # (Auto) 0.5 (0.2-0.8) Eosinophils # (Auto) 0.9 (0.0-0.4) Basophils # (Auto) 0.0 (0.0-0.1) Absolute Immature Granulocyte (auto 0.03 x10e3/uL (0-0.1) Sodium Level 141 mmol/L (136-145) Potassium Level 4.2 mmol/L (3.5-5.1) Chloride Level 104 mmol/L (98-107) Carbon Dioxide Level 28 mmol/L (22-29) Anion Gap 13.2 mmol/L (8-16) Blood Urea Nitrogen 21 mg/dL (7-26) Creatinine 1.11 mg/dL (0.72-1.25) Estimat Glomerular Filtration Rate > 60 ML/MIN (60-) BUN/Creatinine Ratio 19 (6-25) Glucose Level 100 mg/dL (74-118) Calcium Level 9.2 mg/dL (8.4-10.2) Imaging Imaging results reviewed: Yes Impressions [place] [address] Patient Name: NICOLAS HI MR #: [id number] : 1950 Age/Sex: 69/M Req #: [id number] Adm Physician: Ordered by: JAYY LODNON DO Report #: [id number] Location: ER Room/Bed: Procedure: [id number] CT/CT ABDOMEN/PELVIS W Exam Date: 12/15/19 Exam Time: 4 REPORT STATUS: Signed EXAM: CT Abdomen and Pelvis WITH contrast INDICATION: ^right inguinal hernia, obstruction? ^[id number] ^0005 COMPARISON: CT dated 04/25/2019 TECHNIQUE: Abdomen and pelvis were scanned utilizing a multidetector helical scanner from the lung base to the pubic symphysis after administration of IV contrast. Coronal and sagittal reformations were obtained. Dose modulation, iterative reconstruction, and/or weight based adjustment of the mA/kV was utilized to reduce the radiation dose to as low as reasonably achievable. Routine protocol was performed. Scan was performed when during portal venous phase. IV CONTRAST: 100 mL of Isovue-370 ORAL CONTRAST: Gastroview COMPLICATIONS: None RADIATION DOSE: Total DLP: 649.54 mGy*cm Estimated effective dose: (DLP x 0.015 x size factor) mSv CTDIvol has been reviewed. It is below the limits set by the Radiation Protocol Committee (RPC). FINDINGS: LINES and TUBES: None. LOWER THORAX: Respiratory motion limits evaluation. Right upper lobe calcified granuloma. Mild dependent atelectasis. HEPATOBILIARY: Again seen several hepatic hypodensities, the largest in segment 4, likely cysts. No biliary ductal dilation. GALLBLADDER: No radio-opaque stones or sludge. No wall thickening. SPLEEN: Mild splenomegaly. PANCREAS: No focal masses or ductal dilatation. ADRENALS: No adrenal nodules KIDNEYS/URETERS: Kidneys enhance symmetrically. No hydronephrosis. No cystic or solid mass lesions. No stones. GI TRACT: No abnormal distention, wall thickening, or evidence of bowel obstruction. Appendix is normal. Stool throughout the colon, suggestive of constipation. PELVIC ORGANS/BLADDER: Unremarkable. LYMPH NODES: No lymphadenopathy. VESSELS: There is moderate atherosclerotic disease in the aorta and major arterial branches. PERITONEUM / RETROPERITONEUM: No free air or fluid. BONES: Unremarkable. SOFT TISSUES: Indirect right inguinal hernia, containing loop of distal ileum and small amount of free fluid. No bowel wall thickening. Scrotal densities, could represent vasectomy clips. Small bilateral hydrocele. IMPRESSION: Indirect right inguinal hernia, containing loop of terminal ileum and small amount of free fluid. No evidence of bowel obstruction. No bowel wall thickening within hernia sac to suggest strangulation, however incarceration cannot be excluded. Recommend surgical consult. Signed by: Dr. Robert Cross MD on 12/15/2019 1:48 AM Dictated By: ROBERT CROSS MD 7 Transcribed By: LYNN on 12/15/19147 COPY TO: JAYY LONDON DO~ Assessment & Plan Medical Decision Making MDM 69 yom with acute on chronic r inguinal hernia pain. labs ordered to r/o sepsis or infection secondary to obstruction or strangulation. CTS reviewed which was equivocal for diagnosis of incarceration. Plan to admit to the medicine service with surgical consult placed. Assessment & Plan Final Impression: (1) Incarcerated right inguinal hernia (2) UTI (urinary tract infection) Depart Disposition: ADMITTED Last Vital Signs Date Time Temp Pulse Resp B/P (MAP) Pulse Ox O2 Delivery O2 Flow Rate FiO2 12/14/19 22:05 99.1 64 18 109/70 95 Home Meds Reported Medications Divalproex Sodium (DIVALPROEX SODIUM) 500 Mg Tablet.dr, 500 MG PO DAILY 12/15/19 [place] Carbonate (LITHIUM CARBONATE) 300 Mg Tablet, 300 MG PO DAILY 12/15/19 Risperidone (RISPERIDONE) 1 Mg Tablet, 2 MG PO HS 12/15/19 Oxybutynin Chloride (OXYBUTYNIN CHLORIDE) 5 Mg Tablet, 0 PO DAILY, #30 TAB 12/15/19 Trazodone Hcl (TRAZODONE HCL) 100 Mg Tablet, 100 MG PO HS 12/15/19 JAYY LONDON DO Dec 14, 2019 22:28
[2019-12-14] MEDS ORDERED: DIATRIZOATE MEGL/DIATRIZOA SOD 30 ML BTL PO ONE (22:40)
[2019-12-14 23:29] LABS: BASOPHILS % 0.4 % (0.0-1.0); EOSINOPHILS # (AUTO) 0.9 (0.0-0.4); EOSINOPHILS % 10.5 % (0.0-6.0); HEMATOCRIT 40.1 % (38.2-49.6); HEMOGLOBIN 12.8 g/dL (14.0-18.0); LYMPHOCYTES % 24.6 % (18.0-39.1); MEAN CORPUSCULAR HEMOGLOBIN 31.4 pg (28-32); MEAN CORPUSCULAR HGB CONC 31.9 g/dL (31-35); MEAN CORPUSCULAR VOLUME 98.5 fL (81-99); MONOCYTES # (AUTO) 0.5 (0.2-0.8); MONOCYTES % 6.3 % (4.4-11.3); NEUTROPHILS # (AUTO) 4.7 (2.1-6.9); NEUTROPHILS % 57.8 % (38.7-80.0); PLATELET COUNT 206 x10e3/uL (140-360); RED BLOOD COUNT 4.07 x10e6/uL (4.3-5.7); RED CELL DISTRIBUTION WIDTH 13.5 % (11.7-14.4)
[2019-12-14 23:52] LABS: ANION GAP 13.2 mmol/L (8-16); BLOOD UREA NITROGEN 21 mg/dL (7-26); BUN/CREATININE RATIO 19 (6-25); CALCIUM 9.2 mg/dL (8.4-10.2); CARBON DIOXIDE 28 mmol/L (22-29); CHLORIDE 104 mmol/L (98-107); CREATININE, SERUM 1.11 mg/dL (0.72-1.25); EST GLOMERULAR FILTRATION RATE > 60 ML/MIN (60-); GLUCOSE 100 mg/dL (74-118); POTASSIUM 4.2 mmol/L (3.5-5.1); SODIUM 141 mmol/L (136-145)
[2019-12-15 00:11] LABS: BACTERIA,URINE MODERATE /HPF; BILIRUBIN,URINE SMALL (NEGATIVE); CLARITY,URINE CLEAR (CLEAR); COLOR,URINE YELLOW (YELLOW); EPITHELIAL CELLS,URINE FEW /LPF; KETONES,URINE NEGATIVE (NEGATIVE); LEUKOCYTE ESTERASE ,URINE NEGATIVE (NEGATIVE); MUCUS,URINE MANY (RARE); NITRITE,URINE NEGATIVE (NEGATIVE); PROTEIN,URINE DIPSTICK NEGATIVE (NEGATIVE); RBC,URINE 0-5 /HPF (0-5); URINE UROBILINOGEN 1 mg/dL (0.2 - 1); WBC,URINE (MAN) 0-5 /HPF (0-5)
[2019-12-15] MEDS ORDERED: IOPAMIDOL 370 MG/ML 200 ML INFUS..BTL INJ ONE (01:17)
[2019-12-15] MEDS ORDERED: SODIUM CHLORIDE 0.9% 50ML 50 ML ONE (01:17)
--- NOTE | 2019-12-15 01:51 | Diagnostic Imaging Report ---
EXAM: CT Abdomen and Pelvis WITH contrast INDICATION: ^right inguinal hernia, obstruction? ^[id number] ^0005 COMPARISON: CT dated 04/25/2019 TECHNIQUE: Abdomen and pelvis were scanned utilizing a multidetector helical scanner from the lung base to the pubic symphysis after administration of IV contrast. Coronal and sagittal reformations were obtained. Dose modulation, iterative reconstruction, and/or weight based adjustment of the mA/kV was utilized to reduce the radiation dose to as low as reasonably achievable. Routine protocol was performed. Scan was performed when during portal venous phase. IV CONTRAST: 100 mL of Isovue-370 ORAL CONTRAST: Gastroview COMPLICATIONS: None RADIATION DOSE: Total DLP: 649.54 mGy*cm Estimated effective dose: (DLP x 0.015 x size factor) mSv CTDIvol has been reviewed. It is below the limits set by the Radiation Protocol Committee (RPC). FINDINGS: LINES and TUBES: None. LOWER THORAX: Respiratory motion limits evaluation. Right upper lobe calcified granuloma. Mild dependent atelectasis. HEPATOBILIARY: Again seen several hepatic hypodensities, the largest in segment 4, likely cysts. No biliary ductal dilation. GALLBLADDER: No radio-opaque stones or sludge. No wall thickening. SPLEEN: Mild splenomegaly. PANCREAS: No focal masses or ductal dilatation. ADRENALS: No adrenal nodules KIDNEYS/URETERS: Kidneys enhance symmetrically. No hydronephrosis. No cystic or solid mass lesions. No stones. GI TRACT: No abnormal distention, wall thickening, or evidence of bowel obstruction. Appendix is normal. Stool throughout the colon, suggestive of constipation. PELVIC ORGANS/BLADDER: Unremarkable. LYMPH NODES: No lymphadenopathy. VESSELS: There is moderate atherosclerotic disease in the aorta and major arterial branches. PERITONEUM / RETROPERITONEUM: No free air or fluid. BONES: Unremarkable. SOFT TISSUES: Indirect right inguinal hernia, containing loop of distal ileum and small amount of free fluid. No bowel wall thickening. Scrotal densities, could represent vasectomy clips. Small bilateral hydrocele. IMPRESSION: Indirect right inguinal hernia, containing loop of terminal ileum and small amount of free fluid. No evidence of bowel obstruction. No bowel wall thickening within hernia sac to suggest strangulation, however incarceration cannot be excluded. Recommend surgical consult. Signed by: Dr. Robert Cross MD on 12/15/2019 1:48 AM
[2019-12-15] MEDS ORDERED: CIPROFLOXACIN 400 MG/D5W 200ML 200 ML IV SCH (02:15)
[2019-12-15] MEDS ORDERED: MORPHINE SULFATE 2 MG/ML SYR 1ML IV PRN (02:15)
[2019-12-15] MEDS ORDERED: ONDANSETRON HCL INJ 2MG/ML 2ML 2 MG/ML VIAL IV PRN (02:15)
--- NOTE | 2019-12-15 02:18 | NUR ---
{lucas, Jose Sandoval rooming house inspector gave phone number [phone] }
[2019-12-15] MEDS: SODIUM CHLORIDE 0.9% 1000ML 1,000 ML IV SCH ×3 (02:25→18:15)
[2019-12-15] MEDS ORDERED: OXYBUTYNIN CHLOR5 MG PO (02:28)
[2019-12-15] MEDS ORDERED: LITHIUM CARBON300 M1 PO (02:28)
[2019-12-15] MEDS ORDERED: TRAZODONE HCL100 MG PO (02:28)
[2019-12-15] MEDS ORDERED: RISPERIDONE1 MG PO (02:28)
[2019-12-15] MEDS ORDERED: DIVALPROEX SOD500 MG PO (02:28)
--- NOTE | 2019-12-15 02:35 | NUR ---
{null, Received report from ER nurse. }
--- OUTSIDE RECORDS SUMMARY | 2019-12-15 02:37 | XMS REPORT | Continuity of Care Document ---
Author Author [facility] t Organization [facility] Address [address] [place] [address] Phone Unavailable Care Team Providers Care Picker / Packer Name Role Phone NONSTAFF PCP Unavailable JAYY LONDON Attwilder Unavailable Madhuri MARTINEZ Attphyesther Unavailable Payers Payer Name Policy Type Policy Number Effective Date Expiration Date S cami Medicare A & B [id number] 1981 00:00:00 [facility] Problems This patient has no known problems. Allergies, Adverse Reactions, Alerts Allergy Name Allergy Type Status Severity Reaction(s) Onset Date Inacti ve Date Treating Clinician Comments Source Penicillins DA Active [place] 2019-10-13 00:00:00 [facility] Penicillin Allergy to Substance Active 2019-04-25 00:00:00 [facility] Penicillins DA Active MO 2016-01-26 00:00:00 [facility] Medications This patient has no known medications. Procedures Procedure Date / Time Performed Performing Clinician Sour e Computed tomography of abdomen and pelvis with contrast 2018 00:00:00 NABOR HOYOS [facility] Encounters Start Date/Time End Date/Time Encounter Type Admission Type Attendi [facility] Care Department Encounter ID Source 2019-04-25 12:42:00 2019-04-25 16:02:00 Departed Emergency Room 1 JOE MARTINEZ [facility] [id number] [facility] 2017-03-06 00:01:00 2017-03-06 00:01:00 Outpatient [facility] [id number] [facility] 2017-02-03 00:01:00 2017-02-03 00:01:00 Outpatient [facility] [id number] [facility] 2017-01-03 00:01:00 2017-01-03 00:01:00 Outpatient [facility] [id number] [facility] 2016-12-04 00:01:00 2016-12-04 00:01:00 Outpatient [facility] [id number] [facility] 2016-11-25 13:00:00 2016-11-25 13:00:00 Outpatient [facility] [id number] [facility] Results Test Description Test Time Test Comments Results Result Comments Source CT ABDOMEN/PELVIS W 2019-12-15 01:14:00 [place] [address] Patient Name: NICOLAS HI MR #: [id number] : 1950 Age/Sex: 69/M Req #: [id number] Adm Physician: Ordered by: JAYY LONDON DO Report #: [id number] Location: ER Room/Bed: Procedure: [id number] CT/CT ABDOMEN/PELVIS W Exam Date: 12/15/19 Exam Time: 4 REPORT STATUS: Signed EXAM: CT Abdomen and Pelvis WITH contrast INDICATION: right inguinal hernia, obstruction? [id number] COMPARISON: CT dated 04/25/2019 TECHNIQUE: Abdomen and pelvis were scanned utilizing a multidetector helical scanner from the lung base to the pubic symphysis after administration of IV contrast. Coronal and sagittal reformations were obtained. Dose modulation, iterative reconstruction, and/or weight based adjustment of the mA/kV was utilized to reduce the radiation dose to as low as reasonably achievable. Routine protocol was performed. Scan was performed when during portal venous phase. IV CONTRAST: 100 mL of Isovue-370 ORAL CONTRAST: Gastroview COMPLICATIONS: None RADIATION DOSE: Total DLP: 649.54 mGy*cm Estimated effective dose: (DLP x 0.015 x size factor) mSv CTDIvol has been reviewed. It is below the limits set by the Radiation Protocol Committee (RPC). FINDINGS: LINES and TUBES: None. LOWER THORAX: Respiratory motion limits evaluation. Right upper lobe calcified granuloma. Mild dependent atelectasis. HEPATOBILIARY: Again seen several hepatic hypodensities, the largest in segment 4, likely cysts. No biliary ductal dilation. GALLBLADDER: No radio-opaque stones or sludge. No wall thickening. SPLEEN: Mild splenomegaly. PANCREAS: No focal masses or ductal dilatation. ADRENALS: No adrenal nodules KIDNEYS/URETERS: Kidneys enhance symmetrically. No hydronephrosis. No cystic or solid mass lesions. No stones. GI TRACT: No abnormal distention, wall thickening, or evidence of bowel obstruction. Appendix is normal. Stool throughout the colon, suggestive of constipation. PELVIC ORGANS/BLADDER: Unremarkable. LYMPH NODES: No lymphadenopathy. VESSELS: There is moderate at herosclerotic disease in the aorta and major arterial branches. PERITONEUM / RETROPERITONEUM: No free air or fluid. BONES: Unremarkable. SOFT TISSUES: Indirect right inguinal hernia, containing loop of distal ileum and small amount of free fluid. No bowel wall thickening. Scrotal densities, could represent vasectomy clips. Small bilateral hydrocele. IMPRESSION: Indirect right inguinal hernia, containing loop of terminal ileum and small amount of free fluid. No evidence of bowel obstruction. No bowel wall thickening within hernia sac to suggest strangulation, however incarceration cannot be excluded. Recommend surgical consult. Signed by: Dr. Robert Gaston MD on 12/15/2019 1:48 AM Dictated By: ROBERT GASTON MD 7 Transcribed By: LYNN on 12/15/19147 COPY TO: JAYY LONDON DO - CT ABD PELVIS W/CONT 2019-10-13 22:39:00 Dmitriy e: NICOLAS HI [facility] : 1950 Age/S: 69 / M [address] [facility]: [id number] Loc: [place] [address] Phys: Daniela Sebastian COIN MACHINE SUPERVISOR Acct: [id number] Dis Date: Status: REG ER PHONE #: [phone] Exam Date: 10/13/20192209 FAX #: [phone] Reason: increased r hernia pain EXAMS: CPT CODE: [id number] CT ABD PELVIS W/CONT 86101 EXAM: CT ABDOMEN AND PELVIS WITH IV CONTRAST DICTATION LOCATION: H48 HISTORY: Male, 69 years of age with [...] 1 Signed Report (CONTINUED) Name: NICOLAS HI [facility] : 1950 Age/S: 69 / M [address] [facility] Unit #: [id number] [place]: [place] [address] Phys: Daniela Sebastian COIN MACHINE SUPERVISOR Acct: [id number] Dis Date: Status: REG ER PHONE #: [phone] Exam Date: 10/13/20192209 FAX #: [phone] Reason: increased r hernia pain EXAMS: CPT CODE: [id number] CT ABD PELVIS W/CONT 36804 <Continued> Lymphatics: No enlarged lymph nodes by [...] Reese Villagomez MD; Daniela Sebastian NP Technologist:Ivett Nuñez RT(R); WAY[facility] CTDI: DLP: Trnscb Date/Time: 10/13/2019 (2238) [email or web address] Orig Print D/T: S: 10/13/2019 (5) PAGE 2 Signed Report BASIC METABOLIC PANEL [...] CA) 8.2 mg/dL 8.5-10.1 L HEPATIC FUNCTION [id number] 21:52:00* Test Item Value Reference Range Interpretation [...] reference range due to change in reagent. [id number] 21:52:00* Test Item Value Reference Range Interpretation Comments LIPASE (test code = LIP) 50 U/L 73.0-393.0 L [id number]-[id number] 21:52:00* Test Item Value Reference Range Interpretation Comments TROPONIN-I (test code = TROPI) <0.015 ng/mL 0-0.045 N BASIC METABOLIC [id number] 21:41:00* Test Item Value Reference Range Interpretation [...] code = CA) mg/dL 8.5-10.1 HEPATIC FUNCTION [id number] 21:41:00* Test Item Value Reference Range Interpretation [...] TOTAL (test code = ALKP) IUnit/L 45-117 [id number] 21:41:00* Test Item Value Reference Range Interpretation Comments LIPASE (test code = LIP) U/L 73.0-393.0 [id number]-[id number] 21:41:00* Test Item Value Reference Range Interpretation Comments TROPONIN-I (test code = TROPI) ng/mL 0-0.045 CBC W/O [id number] 21:36:00* Test Item Value Reference Range Interpretation [...] = MPV) 10.4 fL 6.7-11.0 N POC Qxifgvx6841-18-40 19:03:55* Test Item Value Reference Range Interpretation Comments Glucose POC (test code = Glucose POC) 123 mg/dL 70-115 H If you consider your patient critically ill, the Ten-Accu Check Infrom II meter should not be used for Glucose determination. Draw a venous Glucose and send to the main Lab for analysis. POC Wbwcghy8507-90-57 15:08:50* Test Item Value Reference Range Interpretation Comments Glucose POC (test code = Glucose POC) 117 mg/dL 70-115 H If you consider your patient critically ill, the Ten-Accu Check Infrom II meter should not be used for Glucose determination. Draw a venous Glucose and send to the main Lab for analysis. POC Nyreqwo8751-41-23 06:15:26* Test Item Value Reference Range Interpretation Comments Glucose POC (test code = Glucose POC) 104 mg/dL 70-115 If you consider your patient critically ill, the Ten-Accu Check Infrom II meter should not be used for Glucose determination. Draw a venous Glucose and send to the main Lab for analysis. POC Mizbmqi4804-17-56 14:57:24* Test Item Value Reference Range Interpretation Comments Glucose POC (test code = Glucose POC) 104 mg/dL 70-115 If you consider your patient critically ill, the Ten-Accu Check Infrom II meter should not be used for Glucose determination. Draw a venous Glucose and send to the main Lab for analysis. POC Opevobp4802-52-50 11:08:56* Test Item Value Reference Range Interpretation Comments Glucose POC (test code = Glucose POC) 97 mg/dL 70-115 If you consider your patient critically ill, the Ten-Accu Check Infrom II meter should not be used for Glucose determination. Draw a venous Glucose and send to the main Lab for analysis. POC Ltnovav6784-16-44 06:29:51* Test Item Value Reference Range Interpretation Comments Glucose POC (test code = Glucose POC) 220 mg/dL 70-115 H If you consider your patient critically ill, the Ten-Accu Check Infrom II meter should not be used for Glucose determination. Draw a venous Glucose and send to the main Lab for analysis. POC Dknlkyu3131-98-10 15:07:44* Test Item Value Reference Range Interpretation Comments Glucose POC (test code = Glucose POC) 127 mg/dL 70-115 H Notify RN or MDIf you consider your patient critically ill, the Ten-Accu Check Infrom II meter should not be used for Glucose determination. Draw a venous Glucose and send to the main Lab for analysis. POC Nrsadli0781-63-17 11:07:18* Test Item Value Reference Range Interpretation Comments Glucose POC (test code = Glucose POC) 119 mg/dL 70-115 H Notify RN or MDIf you consider your patient critically ill, the Ten-Accu Check Infrom II meter should not be used for Glucose determination. Draw a venous Glucose and send to the main Lab for analysis. POC Afqjqac4551-78-19 06:07:18* Test Item Value Reference Range Interpretation Comments Glucose POC (test code = Glucose POC) 96 mg/dL 70-115 If you consider your patient critically ill, the Tne-Accu Check Infrom II meter should not be used for Glucose determination. Draw a venous Glucose and send to the main Lab for analysis. POC Dqijjmv6126-16-80 21:15:45* Test Item Value Reference Range Interpretation Comments Glucose POC (test code = Glucose POC) 150 mg/dL 70-115 H Notify RN or MDIf you consider your patient critically ill, the Ten-Accu Check Infrom II meter should not be used for Glucose determination. Draw a venous Glucose and send to the main Lab for analysis. POC Thhohjr2351-34-80 14:57:12* Test Item Value Reference Range Interpretation Comments Glucose POC (test code = Glucose POC) 124 mg/dL 70-115 H If you consider your patient critically ill, the Ten-Accu Check Infrom II meter should not be used for Glucose determination. Draw a venous Glucose and send to the main Lab for analysis. POC Pdxlmlp9544-51-34 06:10:12* Test Item Value Reference Range Interpretation Comments Glucose POC (test code = Glucose POC) 114 mg/dL 70-115 If you consider your patient critically ill, the Ten-Accu Check Infrom II meter should not be used for Glucose determination. Draw a venous Glucose and send to the main Lab for analysis. POC Bcpehzw2141-97-90 19:24:17* Test Item Value Reference Range Interpretation Comments Glucose POC (test code = Glucose POC) 189 mg/dL 70-115 H If you consider your patient critically ill, the Ten-Accu Check Infrom II meter should not be used for Glucose determination. Draw a venous Glucose and send to the main Lab for analysis. POC Agwktnu4475-48-12 15:15:06* Test Item Value Reference Range Interpretation Comments Glucose POC (test code = Glucose POC) 135 mg/dL 70-115 H If you consider your patient critically ill, the Ten-Accu Check Infrom II meter should not be used for Glucose determination. Draw a venous Glucose and send to the main Lab for analysis. POC Noohyic0315-34-32 10:53:42* Test Item Value Reference Range Interpretation Comments Glucose POC (test code = Glucose POC) 130 mg/dL 70-115 H If you consider your patient critically ill, the Ten-Accu Check Infrom II meter should not be used for Glucose determination. Draw a venous Glucose and send to the main Lab for analysis. Thyroid Stimulating Svdxpis3749-58-04 10:02:12* Test Item Value Reference Range Interpretation Comments TSH (test code = TSH) 2.550 mIU/mL 0.270-4.200 Lipid Ykoqm7775-69-05 09:52:03* Test Item Value Reference Range Interpretation Comments Cholesterol Total (test code = Cholesterol Total) 128 mg/dL 0-20 0 RISK OF HEART DISEASEPublished by [place] [employer] Analyte Optimal Borderline Increased RiskCHOL [...] calculation is LDL/HDL Ratio=LDL Calc/HDL Chol POC Vuxbvtv9833-65-74 06:03:08* Test Item Value Reference Range Interpretation Comments Glucose POC (test code = Glucose POC) 97 mg/dL 70-115 If you consider your patient critically ill, the Ten-Accu Check Infrom II meter should not be used for Glucose determination. Draw a venous Glucose and send to the main Lab for analysis. POC Dzcumzg0654-38-16 19:23:12* Test Item Value Reference Range Interpretation Comments Glucose POC (test code = Glucose POC) 140 mg/dL 70-115 H Notify RN or MDIf you consider your patient critically ill, the Ten-Accu Check Infrom II meter should not be used for Glucose determination. Draw a venous Glucose and send to the main Lab for analysis. POC Facafsb5933-08-40 15:11:08* Test Item Value Reference Range Interpretation Comments Glucose POC (test code = Glucose POC) 133 mg/dL 70-115 H If you consider your patient critically ill, the Ten-Accu Check Infrom II meter should not be used for Glucose determination. Draw a venous Glucose and send to the main Lab for analysis. POC Tixyevm7451-85-11 10:33:33* Test Item Value Reference Range Interpretation Comments Glucose POC (test code = Glucose POC) 90 mg/dL 70-115 If you consider your patient critically ill, the Ten-Accu Check Infrom II meter should not be used for Glucose determination. Draw a venous Glucose and send to the main Lab for analysis. POC Vikrkbf8638-07-91 19:20:07* Test Item Value Reference Range Interpretation Comments Glucose POC (test code = Glucose POC) 151 mg/dL 70-115 H If you consider your patient critically ill, the Ten-Accu Check Infrom II meter should not be used for Glucose determination. Draw a venous Glucose and send to the main Lab for analysis. POC Dwtxjuy7352-38-85 14:48:31* Test Item Value Reference Range Interpretation Comments Glucose POC (test code = Glucose POC) 119 mg/dL 70-115 H If you consider your patient critically ill, the Ten-Accu Check Infrom II meter should not be used for Glucose determination. Draw a venous Glucose and send to the main Lab for analysis. RPR Pvldrdguqpy8943-55-19 14:35:14* Test Item Value Reference Range Interpretation [...] code = Expiration Dt) 05-05-20 N POC Ngycdvm7492-83-46 10:49:39* Test Item Value Reference Range Interpretation Comments Glucose POC (test code = Glucose POC) 124 mg/dL 70-115 H If you consider your patient critically ill, the Ten-Accu Check Infrom II meter should not be used for Glucose determination. Draw a venous Glucose and send to the main Lab for analysis. POC Iofcyyy6960-62-60 05:34:08* Test Item Value Reference Range Interpretation Comments Glucose POC (test code = Glucose POC) 108 mg/dL 70-115 If you consider your patient critically ill, the Ten-Accu Check Infrom II meter should not be used for Glucose determination. Draw a venous Glucose and send to the main Lab for analysis. POC Icwajek5855-39-10 01:57:02* Test Item Value Reference Range Interpretation Comments Glucose POC (test code = Glucose POC) 94 mg/dL 70-115 If you consider your patient critically ill, the Ten-Accu Check Infrom II meter should not be used for Glucose determination. Draw a venous Glucose and send to the main Lab for analysis. Alcohol Hwgic6979-55-29 22:17:13* Test Item Value Reference Range Interpretation Comments Ethanol Level (test code = Ethanol Level) <0.00 g/dL 0.00-0.01 Intoxicated 0.080 g/dL or more Ethanol Inst (test code = Ethanol Inst) <0 N Comprehensive Metabolic [id number] 22:17:12* Test Item Value Reference Range Interpretation [...] A/G Ratio) 1.9 ratio N Comprehensive Metabolic Hlqit8748-68-75 22:17:12* Test Item Value Reference Range Interpretation [...] is not provided, and the patient is -Bhutanese, multiply by 1.212. If sex is not [...] the National Kidney Foundation, http://nkdep.nih.gov Comprehensive Metabolic Bnlhs4520-24-67 22:17:12* Test Item Value Reference Range Interpretation [...] is not provided, and the patient is -Bhutanese, multiply by 1.212. If sex is not [...] is not provided, and the patient is -Bhutanese, multiply by 1.212. If sex is not [...] the National Kidney Foundation, http://nkdep.nih.gov Urine Drug Pverzt0464-06-02 22:03:54* Test Item Value Reference Range Interpretation [...] test if desired. Urinalysis with Microscopic if pzoqwqynt3362-16-61 21:43:47* Test Item Value Reference Range Interpretation [...] ed Result created by rule GL_SJM_UA_MICRO_IND Automated Qvdrnsqsmtzh3347-76-45 21:36:14* Test Item Value Reference Range Interpretation Comments Neutro Auto (test code = Neutro Auto) 53.6 % 36.0-70.0 Lymph Auto (test code = Lymph Auto) 30.0 % 12.0-44.0 Cameron Auto (test code = Cameron Auto) 7.4 % 0.0-11.0 Eos, Auto (test code = Eos, Auto) 7.8 % 0.0-7.0 H Basophil Auto (test code = Basophil Auto) 0.8 % 0.0-2.0 Neutro Absolute (test code = Neutro Absolute) 2.8 x10 1.6-7.4 Lymph Absolute (test code = Lymph Absolute) 1.57 x10 .50-4.60 Cameron Absolute (test code = Cameron Absolute) .39 x10 .00-1.20 Eos Absolute (test code = Eos Absolute) 0.41 x10 0.00-0.74 Baso Absolute (test code = Baso Absolute) 0.04 x10 0.00-0.21 IG Lhnvq9929-76-47 21:36:14* Test Item Value Reference Range Interpretation Comments IG (test code = IG) 0.4 % 0.0-5.0 IG Abs (test code = IG Abs) 0 x10 N Complete Blood Count with Lfrvrjkljywu9271-45-78 21:36:13* Test Item Value Reference Range Interpretation [...] = IPF) 0 % N CT ABDOMEN/PELVIS [id number] 14:54:00 [facility] [address] [address] Patient Name: NICOLAS HI MR #: [id number] : 1950 Age/Sex: 68/M Req #: [id number] Adm Physician: Ordered by: NABOR HOYOS NP Report #: [id number] Location: ER Room/Bed: Procedure: [id number] CT/CT ABDOMEN/PELVIS W Exam Date: Exam Time: [...] PATEL MD 1500 COPY TO: Fanny HOYOS NP Urine [id number] 13:53:00* Test Item Value Reference Range Interpretation Comments Urine WBC (test code = 5821-4) 0-5 0-5 [facility] [id number] 13:53:00* Test Item Value Reference Range Interpretation Comments Urine RBC (test code = 51625-6) NONE 0-5 [facility] Gkxofvcp2127-60-32 13:53:00* Test Item Value Reference Range Interpretation Comments Urine Bacteria (test code = 31059-4) RARE NONE [facility] Epithelial Lasqf2084-91-49 13:53:00 * Test Item Value Reference Range Interpretation Comments Urine Epithelial Cells (test code = 13654-7) [facility]W NONE [facility] Vgvba3566-96-38 13:48:00* Test Item Value Reference Range Interpretation Comments Sodium Level (test code = 2951-2) 136 136-145 [facility]assium Vazzv6087-68-06 13:48:00* Test Item Value Reference Range Interpretation Comments Potassium Level (test code = 2823-3) 4.1 3.5-5.1 [facility] HospitalChloride Wzzfk3931-22-59 13:48:00* Test Item Value Reference Range Interpretation Comments Chloride Level (test code = 2075-0) 96 98-107 L [facility] HospitalCarbon Dioxide Bodtq5763-56-49 13:48:00* Test Item Value Reference Range Interpretation Comments Carbon Dioxide Level (test code = 2028-9) 31 22-29 H [facility] HospitalAnion Jsc5177-87-96 13:48:00* Test Item Value Reference Range Interpretation Comments Anion Gap (test code = 25797-7) 13.1 8-16 [facility] HospitalBlood Urea Foehdlsh0783-55-75 13:48:00* Test Item Value Reference Range Interpretation Comments Blood Urea Nitrogen (test code = 3094-0) 17 7-26 [facility] HospitalCreatinine2019-10-21 13:48:00* Test Item Value Reference Range Interpretation Comments Creatinine (test code = 2160-0) 0.99 0.72-1.25 [facility] HospitalBUN/Creatinine Qjzmu3486-17-50 13:48:00* Test Item Value Reference Range Interpretation Comments BUN/Creatinine Ratio (test code = 3097-3) 17 6- [facility] HospitalEstimat Glomerular Filtration Rate 2019-04-25 13:48:00* Test Item Value Reference Range Interpretation Comments Estimat Glomerular Filtration Rate (test code = 367113981) > 60 >60 Ranges were taken from the National Kidney Disease Education Program and the [facility] Kid[facility] Foundation literature.Reference ranges:60 or greater: Tvljar40-22 ( for 3 consecutive months): Chronic kidney disease 15 or less: Kidney failureRio Grande Regional HospitalGlucose Aarwn4769-17-58 13:48:00* Test Item Value Reference Range Interpretation Comments Glucose Level (test code = TOG0381) 90 74-118 [facility] HospitalCalcium Qnvdn1993-57-29 13:48:00* Test Item Value Reference Range Interpretation Comments Calcium Level (test code = 12549-6) 9.0 8.4-10.2 [facility] HospitalTotal Dermpgpqu1040-18-84 13:48:00* Test Item Value Reference Range Interpretation Comments Total Bilirubin (test code = 1975-2) 0.2 0.2-1.2 [facility] HospitalAspartate Amino Transf (AST/SGOT) 2019-04-25 13:48:00* Test Item Value Reference Range Interpretation Comments Aspartate Amino Transf (AST/SGOT) (test code = Aspartate Amino Transf (AST/SGOT)) 19 5-34 [facility] HospitalAlanine Aminotransferase (ALT/SGPT) 2019-04-25 13:48:00* Test Item Value Reference Range Interpretation Comments Alanine Aminotransferase (ALT/SGPT) (test code = 1742-6) 13 0-55 [facility] HospitalTotal Zdxpxun0445-13-67 13:48:00* Test Item Value Reference Range Interpretation Comments Total Protein (test code = 2885-2) 6.5 6.5-8.1 [facility] HospitalAlbumin2019-10-21 13:48:00* Test Item Value Reference Range Interpretation Comments Albumin (test code = 1751-7) 3.5 3.5-5.0 [facility] HospitalGlobulin2019-10-21 13:48:00* Test Item Value Reference Range Interpretation Comments Globulin (test code = 13245-0) 3.0 2.3-3.5 [facility] HospitalAlbumin/Globulin Tuxge7848-60-61 13:48:00 * Test Item Value Reference Range Interpretation Comments Albumin/Globulin Ratio (test code = 1759-0) 1.2 0.8-2.0 [facility] HospitalAlkaline Vnlxhwfhvhl2732-91-04 13:48:00* Test Item Value Reference Range Interpretation Comments Alkaline Phosphatase (test code = 6768-6) 47 40-150 [facility] HospitalU[facility] Wnmdo6542-48-93 13:31:00* Test Item Value Reference Range Interpretation Comments Urine Color (test code = 5778-6) YELLOW YELLOW [facility] HospitalU[facility] Snafmbg0037-68-59 13:31:00* Test Item Value Reference Range Interpretation Comments Urine Clarity (test code = 12360-2) CLEAR CLEAR [facility] HospitalU[facility] Specific Ugzilti0625-25-88 13:31:00 * Test Item Value Reference Range Interpretation Comments Urine Specific Rindge (test code = 5811-5) 1.025 1.010-1.02 5 [facility] HospitalU[facility] tP5743-03-34 13:31:00* Test Item Value Reference Range Interpretation Comments Urine pH (test code = 64086-2) 6 5-7 [facility] Leukocyte Yurweslb2313-71-21 13:31:00* Test Item Value Reference Range Interpretation Comments Urine Leukocyte Esterase (test code = 03849-9) NEGATIVE NEGATIV E [facility] HospitalU[facility] Neuogua6568-54-56 13:31:00* Test Item Value Reference Range Interpretation Comments Urine Nitrite (test code = 81362-5) NEGATIVE NEGATIVE [facility] Hospital[facility] Eremycs1249-54-21 13:31:00* Test Item Value Reference Range Interpretation Comments Urine Protein (test code = 15474-8) NEGATIVE NEGATIVE [facility] Hospital[facility] Glucose (UA)2019-04-25 13:31:00* Test Item Value Reference Range Interpretation Comments Urine Glucose (UA) (test code = 57540-8) NEGATIVE NEGATIVE [facility] [id number] 13:31:00* Test Item Value Reference Range Interpretation Comments Urine Ketones (test code = 22332-9) NEGATIVE NEGATIVE [facility] [id number] 13:31:00* Test Item Value Reference Range Interpretation Comments Urine Urobilinogen (test code = 96517-1) 1 0.2-1 [facility] [id number] 13:31:00* Test Item Value Reference Range Interpretation Comments Urine Bilirubin (test code = 1977-8) NEGATIVE NEGATIVE [facility] [id number] 13:31:00* Test Item Value Reference Range Interpretation Comments Urine Blood (test code = 98190-8) TRACE NEGATIVE [facility] [id number] 13:29:00* Test Item Value Reference Range Interpretation Comments White Blood Count (test code = 6690-2) 3.68 4.8-10.8 L [facility] [id number] 13:29:00* Test Item Value Reference Range Interpretation Comments Red Blood Count (test code = 789-8) 4.13 4.3-5.7 L [facility]2019-10-21 13:29:00* Test Item Value Reference Range Interpretation Comments Hemoglobin (test code = 32594-2) 13.6 14.0-18.0 L [facility]Hematocrit2019-10-21 13:29:00* Test Item Value Reference Range Interpretation Comments Hematocrit (test code = 4544-3) 40.1 38.2-49.6 [facility] Corpuscular Pnkayq4917-00-56 13:29:00* Test Item Value Reference Range Interpretation Comments Mean Corpuscular Volume (test code = 787-2) 97.1 81-99 [facility] Eyohrjazis1411-82-44 13:29:00* Test Item Value Reference Range Interpretation Comments Mean Corpuscular Hemoglobin (test code = 785-6) 32.9 28-32 H [facility] Hemoglobin Concent 2019-04-25 13:29:00* Test Item Value Reference Range Interpretation Comments Mean Corpuscular Hemoglobin Concent (test code = 786-4) 33.9 31-35 [facility] Distribution [id number] 13:29:00* Test Item Value Reference Range Interpretation Comments Red Cell Distribution Width (test code = 33045-8) 12.9 11.7 -14.4 [facility]Platelet Cmnco2930-03-43 13:29:00* Test Item Value Reference Range Interpretation Comments Platelet Count (test code = 777-3) 147 140-360 [facility]Neutrophils (%) (Auto)2019-04-25 13:29:00 * Test Item Value Reference Range Interpretation Comments Neutrophils (%) (Auto) (test code = 69668-1) 57.0 38.7-80.0 [facility]Lymphocytes (%) (Auto)2019-04-25 13:29:00 * Test Item Value Reference Range Interpretation Comments Lymphocytes (%) (Auto) (test code = 736-9) 30.2 18.0-39.1 [facility] (%) (Auto)2019-04-25 13:29:00* Test Item Value Reference Range Interpretation Comments Monocytes (%) (Auto) (test code = 5905-5) 9.5 4.4-11.3 [facility]osinophils (%) (Auto)2019-04-25 13:29:00 * Test Item Value Reference Range Interpretation Comments Eosinophils (%) (Auto) (test code = 713-8) 2.7 0.0-6.0 [facility] (%) (Auto)2019-04-25 13:29:00* Test Item Value Reference Range Interpretation Comments Basophils (%) (Auto) (test code = 706-2) 0.3 0.0-1.0 [facility]IM [facility]ULOCYTES %2019-04-25 13:29:00* Test Item Value Reference Range Interpretation Comments IM GRANULOCYTES % (test code = IM GRANULOCYTES %) 0.3 0.0- 1.0 [facility]Neutrophils # (Auto)2019-04-25 13:29:00* Test Item Value Reference Range Interpretation Comments Neutrophils # (Auto) (test code = 751-8) 2.1 2.1-6.9 [facility]Lymphocytes # (Auto)2019-04-25 13:29:00* Test Item Value Reference Range Interpretation Comments Lymphocytes # (Auto) (test code = 64644-0) 1.1 1.0-3.2 [facility] # (Auto)2019-04-25 13:29:00* Test Item Value Reference Range Interpretation Comments Monocytes # (Auto) (test code = 742-7) 0.4 0.2-0.8 [facility]osin[facility] # (Auto)2019-04-25 13:29:00* Test Item Value Reference Range Interpretation Comments Eosinophils # (Auto) (test code = 711-2) 0.1 0.0-0.4 [facility] # (Auto)2019-04-25 13:29:00* Test Item Value Reference Range Interpretation Comments Basophils # (Auto) (test code = 704-7) 0.0 0.0-0.1 [facility] HospitalAbsolute Immature Granulocyte (auto 2019-04-25 13:29:00* Test Item Value Reference Range Interpretation Comments Absolute Immature Granulocyte (auto (marisela t code = Absolute Immature Granulocyte (auto) 0.01 0-0.1 [facility]
--- NOTE | 2019-12-15 02:41 | NUR ---
{null, Patient swabbed for COVID at this time }
--- NOTE | 2019-12-15 02:53 | NUR ---
{null, Patient arrived to the floor via stretcher into room 292 from ER. }
[2019-12-15 03:18] VITALS: BP 160/73
--- NOTE | 2019-12-15 05:42 | History and Physical ---
REASON FOR ADMISSION: Right inguinal hernia. HISTORY OF PRESENT ILLNESS: The patient is a 69-year-old gentleman, who presented with right lower quadrant abdominal pain, where he was found to have an evidence of a right inguinal hernia on exam as well as CT scan. Currently, he states his pain is actually doing quite well. PAST MEDICAL HISTORY: Significant for hypertension and anxiety disorder. MEDICATIONS: See MAR. ALLERGIES: PENICILLIN. SOCIAL HISTORY: Nonsmoker and nondrinker. FAMILY HISTORY: Noncontributory. PHYSICAL EXAMINATION: VITAL SIGNS: Temperature 97.9, pulse 50, blood pressure 160/73, sats 100% on room air. GENERAL: No apparent distress, lying in bed. NECK: Supple. CARDIOVASCULAR: Regular rate and rhythm. LUNGS: Clear to auscultation bilaterally. ABDOMEN: Good bowel sounds. Soft, nontender. EXTREMITIES: No clubbing or cyanosis. The right inguinal area does have evidence of a hernia, but it is nontender. NEUROLOGIC: Nonfocal. Moves all extremities x4. ASSESSMENT/PLAN: 1. Right inguinal hernia. We will go ahead and consult Dr. Rubio of Surgery for possible surgical fixation. 2. Urinary tract infection. Continue with antibiotics. Wait on culture data. 3. Hypertension. We will continue to monitor. 4. Anxiety disorder. We will restart his medication once we have determined when he is going to have the surgery. 5. Anemia. We will continue to monitor. Please see hospital chart for full details. MD CURTIS Martinez/ANGELA /[id number]
--- NOTE | 2019-12-15 08:00 | NUR ---
{null, RECEIVED PT EARLIER BUT RESTING QUIETLY AT THIS TIME }
[2019-12-15 08:21] VITALS: BP 151/79
[2019-12-15] MEDS: DEPAKOTE DELAYED-RELEASE TAB 500 MG PO SCH (08:46)
[2019-12-15] MEDS: OXYBUTYNIN CHLORIDE 5 MG TAB PO SCH (08:46)
--- NOTE | 2019-12-15 09:00 | NUR ---
{null, spoke with out of school hours care worker Jose and he will call st sit with pt. bed alarm is on Addendum: 12/15/19 at 1111 by Annabella Melo RN SPOKE WITH JOSE AND HE WILL COME AND SIT WITH PT. BED ALARM IS ON LEVEL 2. }
[2019-12-15 12:00] VITALS: BP 138/73
[2019-12-15] MEDS: CIPROFLOXACIN 400 MG/D5W 200ML 200 ML IV SCH (14:00)
[2019-12-15] MEDS: LITHIUM CARBONATE 150 MG CAPSULE PO SCH (14:00)
[2019-12-15 16:00] VITALS: BP 130/77
--- NOTE | 2019-12-15 19:55 | NUR ---
{null, Received change of shift report from AM nurse. Walking rounds completed. }
[2019-12-15 20:00] VITALS: BP 155/81
[2019-12-15] MEDS: TRAZODONE HCL 50 MG TAB PO SCH (20:43)
[2019-12-15] MEDS: RISPERIDONE 1 MG TAB PO SCH (20:44)
[2019-12-16] VITALS (8 sets, daily range): BP systolic 114–151; BP diastolic 57–76
--- NOTE | 2019-12-16 | NUR ---
{null, Patient in bed with provider at bedside. Denies pain or discomfort at this time. Continue monitor. }
[2019-12-16] MEDS: CIPROFLOXACIN 400 MG/D5W 200ML 200 ML IV SCH ×2 (02:00→13:11)
[2019-12-16] MEDS: SODIUM CHLORIDE 0.9% 1000ML 1,000 ML IV SCH (02:15)
--- NOTE | 2019-12-16 06:18 | NUR ---
{null, Asst to reposition patient in bed. Patient resting quitly at this time. }
--- NOTE | 2019-12-16 06:48 | NUR ---
{null, RECEIVED BEDSIDE SHIFT REPORT FROM OFF GOING NURSE. PATIENT IS RESTING IN BED. NO S/S OF DISTRESS NOTED. CARE PROVIDER AT BEDSIDE. CALL LIGHT WITHIN REACH. BED IN THE LOWEST POSITION. BED ALARM ON. }
[2019-12-16 06:55] LABS: BASOPHILS % 0.5 % (0.0-1.0); EOSINOPHILS # (AUTO) 0.8 (0.0-0.4); EOSINOPHILS % 11.8 % (0.0-6.0); HEMATOCRIT 41.6 % (38.2-49.6); HEMOGLOBIN 13.1 g/dL (14.0-18.0); LYMPHOCYTES # (AUTO) 1.4 (1.0-3.2); LYMPHOCYTES % 21.9 % (18.0-39.1); MEAN CORPUSCULAR HEMOGLOBIN 31.2 pg (28-32); MEAN CORPUSCULAR HGB CONC 31.5 g/dL (31-35); MONOCYTES # (AUTO) 0.5 (0.2-0.8); NEUTROPHILS # (AUTO) 3.8 (2.1-6.9); NEUTROPHILS % 58.5 % (38.7-80.0); PLATELET COUNT 186 x10e3/uL (140-360); RED CELL DISTRIBUTION WIDTH 13.4 % (11.7-14.4)
[2019-12-16 07:38] LABS: ALANINE AMINOTRANSFERASE 7 IU/L (0-55); ALBUMIN 3.3 g/dL (3.5-5.0); ALBUMIN/GLOBULIN RATIO 1.2 (0.8-2.0); ALKALINE PHOSPHATASE 42 IU/L (40-150); ANION GAP 9.7 mmol/L (8-16); BLOOD UREA NITROGEN 14 mg/dL (7-26); BUN/CREATININE RATIO 13 (6-25); CALCIUM 8.1 mg/dL (8.4-10.2); CARBON DIOXIDE 31 mmol/L (22-29); CHLORIDE 105 mmol/L (98-107); CREATININE, SERUM 1.06 mg/dL (0.72-1.25); EST GLOMERULAR FILTRATION RATE > 60 ML/MIN (60-); GLUCOSE 80 mg/dL (74-118); POTASSIUM 4.7 mmol/L (3.5-5.1); SODIUM 141 mmol/L (136-145)
[2019-12-16] MEDS ORDERED: SEVOFLURANE INHAL SOLN 250 ML PEN BTL ONE (14:07)
[2019-12-16] MEDS ORDERED: PROPOFOL IV EMULSION 10 MG/ML 20 ML VIAL ONE (14:07)
[2019-12-16] MEDS ORDERED: ONDANSETRON HCL INJ 2MG/ML 2ML 2 MG/ML VIAL ONE (14:07)
[2019-12-16] MEDS ORDERED: DEXAMETHASONE SOD PHOS INJ 4 MG/ML VIAL ONE (14:07)
[2019-12-16] MEDS ORDERED: ROCURONIUM BROMIDE 10 MG/ML 5ML VIAL IV ONE (14:07)
[2019-12-16] MEDS ORDERED: LIDOCAINE HCL 2% LOCAL INJ 5 ML SDV VIAL INJ ONE (14:07)
[2019-12-16] MEDS ORDERED: EPHEDRINE SULFATE INJ 50 MG/ML VIAL ONE (14:07)
[2019-12-16] MEDS ORDERED: LIDOCAINE HCL 1% LOCAL INJ 20 ML VIAL ONE (14:12)
[2019-12-16] MEDS ORDERED: BUPIVACAINE 0.25%/EPI 30ML SDV INJ ONE (14:12)
--- NOTE | 2019-12-16 14:20 | NUR ---
{null, PATIENT OFF UNIT FOR PROCEDURE. }
[2019-12-16] MEDS ORDERED: SODIUM CHLORIDE 0.9% 1000ML 1,000 ML IV SCH (16:30)
[2019-12-16] MEDS ORDERED: HYDROCODONE/APAP 7.5MG-325MG 1 EA TAB PO PRN (16:30)
--- NOTE | 2019-12-16 17:10 | NUR ---
{null, PATIENT BACK TO UNIT AT THIS TIME. HE IS IN STABLE CONDITION. }
[2019-12-16] MEDS: LITHIUM CARBONATE 150 MG CAPSULE PO SCH (17:20)
[2019-12-16] MEDS: OXYBUTYNIN CHLORIDE 5 MG TAB PO SCH (17:20)
[2019-12-16] MEDS: DEPAKOTE DELAYED-RELEASE TAB 500 MG PO SCH (17:20)
--- NOTE | 2019-12-16 18:07 | NUR ---
{null, APPLIED TELE BOX TO PATIENT, CALLED TELE AND PATIENT IS SHOWING SB @ 52. }
--- NOTE | 2019-12-16 19:12 | NUR ---
{null, Bedside shift report given to oncoming nurse. Patient is resting in bed. No acute distress noted. Call light within reach. Bed in the lowest position. Bed alarm on. Care provider at bedside. }
--- NOTE | 2019-12-16 19:25 | NUR ---
{null, Received change of shift report from AM nurse. Walking rounds completed. }
[2019-12-16] MEDS: TRAZODONE HCL 50 MG TAB PO SCH (21:00)
[2019-12-16] MEDS: RISPERIDONE 1 MG TAB PO SCH (21:00)
--- NOTE | 2019-12-16 22:36 | Operative Report ---
DATE OF PROCEDURE: 12/16/2019 SURGEON: Chato Rubio MD PREOPERATIVE DIAGNOSIS: Incarcerated right inguinal hernia. POSTOPERATIVE DIAGNOSIS: Incarcerated right inguinal hernia. OPERATION PERFORMED: Repair of incarcerated right inguinal hernia with extended Prolene hernia system. BOX LOADER: TOMA Whitlock. ANESTHESIA: General. COMPLICATIONS: None. ESTIMATED BLOOD LOSS: Minimal. DESCRIPTION OF PROCEDURE: With the patient lying in bed in the supine position under good general anesthesia, the abdomen was prepped with Betadine solution and draped in the usual manner. A right inguinal incision was made, it was carried down through the subcutaneous tissue down to the external oblique aponeurosis. External oblique was opened along the length of its fibers and the external inguinal ring was opened. The cord was then mobilized and retracted. Contained within the cord was a large indirect hernia sac, which contained bowel and medially the corner of the bladder. The hernia sac was then from all of the cord structures. The hernia sac was then opened and all the contents were reduced back to the intra-abdominal cavity and the excess of the hernia sac was then closed with a pursestring suture of 0 Ethibond and a 0 Ethibond tie. The excess was resected. After this was done, the preperitoneal space was then entered through the internal ring and a pocket was created without any difficulty. After this was done, the extended Prolene hernia system was placed in the preperitoneal space and the underlay patch was deployed without any problems. The overlay patch was then placed over the floor and split inferolaterally to allow for passage of the cord. The mesh was then sutured to the conjoined tendon and the inguinal ligament using interrupted sutures of 2-0 Vicryl. The whole area was thoroughly irrigated. Perfect hemostasis was ascertained. All layers were infiltrated on the way out with solution of 0.25% Marcaine and 1% lidocaine mixed in equal parts. The external oblique aponeurosis was closed with a running suture of 2-0 Vicryl, the subcutaneous tissue was approximated with 3-0 plain, and the skin was closed with subcuticular 5-0 Vicryl. Benzoin, Steri-Strips, and dressings were applied. The sponge, lap, and needle count was correct. The patient tolerated the procedure well and returned to the recovery room in stable condition. MD SEVERIANO Oquendo/ANGELA /[id number]
[2019-12-17] VITALS (8 sets, daily range): BP systolic 119–149; BP diastolic 59–75
--- NOTE | 2019-12-17 | NUR ---
{null, Patient in bed supine position. Groin to right side dry and intact. Patient denies pain at this time. Provider at bedside. }
[2019-12-17] MEDS: CIPROFLOXACIN 400 MG/D5W 200ML 200 ML IV SCH (01:16)
--- NOTE | 2019-12-17 02:36 | NUR ---
{null, Patient request snack at bedside eatting with no difficulty noted. }
--- NOTE | 2019-12-17 06:44 | NUR ---
{null, RECEIVED BEDSIDE SHIFT REPORT FROM OFF GOING NURSE. PATIENT IS RESTING IN BED. NO ACUTE DISTRESS NOTED. CARE PROVIDER AT BEDSIDE. CALL LIGHT WITHIN REACH. BED IN THE LOWEST POSITION. }
[2019-12-17] MEDS: OXYBUTYNIN CHLORIDE 5 MG TAB PO SCH (08:00)
[2019-12-17] MEDS: LITHIUM CARBONATE 150 MG CAPSULE PO SCH (08:00)
[2019-12-17] MEDS: DEPAKOTE DELAYED-RELEASE TAB 500 MG PO SCH (08:00)
--- NOTE | 2019-12-17 10:45 | NUR ---
{null, NOTIFIED DR. CARABALLO THAT PATIENT PULLED IV OUT AND REFUSING TO GET A NEW ONE. PER MD NO NEED TO START IV, CHANGED ABT TO PO. }
[2019-12-17] MEDS ORDERED: NICOTINE 14 MG/EA PATCH TOP SCH (13:15)
--- NOTE | 2019-12-17 14:32 | NUR ---
{null, NOTIFIED DR. LOCKHART THAT PATIENT PULLING ON TELE. PER MD, GIVE PATIENT A BREAK AND PUT TELE BACK IN THE EVENING. }
[2019-12-17] MEDS ORDERED: ZIPRASIDONE 20 MG VIAL IM PRN (16:30)
[2019-12-17] MEDS ORDERED: CIPROFLOXACIN 500 MG TAB PO SCH (17:00)
--- NOTE | 2019-12-17 19:03 | NUR ---
{null, Bedside shift report given to oncoming nurse. Patient is in stable condition, resting in bed, no acute distress noted. home health caregiver at bedside. Call light within reach. Bed in the lowest position. }
--- NOTE | 2019-12-17 19:36 | NUR ---
{null, Received change of shift report from AM nurse. Walking rounds completed. }
[2019-12-17] MEDS: TRAZODONE HCL 50 MG TAB PO SCH (20:38)
[2019-12-17] MEDS: RISPERIDONE 1 MG TAB PO SCH (20:38)
--- NOTE | 2019-12-17 20:38 | NUR ---
{null, Patient at elevator several times to leave. Provider unable to control patient. Called Dr Bahena and informed of situation. [facility] Living home states they will take him back. Dr Bahena ok to d/c. }
--- NOTE | 2019-12-17 21:15 | Consultation ---
DATE OF CONSULTATION: 12/17/2019 Cardiology Consultation REQUESTING PHYSICIAN: Dr. Bahena. REASON FOR CONSULTATION: Bradycardia. HISTORY OF PRESENT ILLNESS: This is a 69-year-old man with history of schizoaffective disorder, who was brought to [facility] ER for pain in the right inguinal region. He was found to have a right inguinal hernia and Surgery was consulted with finding of incarcerated right inguinal hernia. The patient underwent surgical repair by Dr. Rubio. Postprocedure, the patient was noted to be bradycardic to the 40s, for which Cardiology is consult. The patient denies any cardiac complaints. Denies chest pain, shortness of breath, or palpitations. Denies any lightheadedness. REVIEW OF SYSTEMS: Negative except as per HPI. PAST MEDICAL HISTORY: Schizoaffective disorder. PAST SURGICAL HISTORY: None. ALLERGIES: PLEASE SEE EMR. MEDICATIONS: Please see medication list. SOCIAL HISTORY: He smokes one-pack a day. No alcohol or drugs. FAMILY HISTORY: Denies. PHYSICAL EXAMINATION: VITAL SIGNS: Temperature 97.8 degrees, pulse 72, respiratory rate 21, blood pressure 131/73, and oxygen saturation 92% on room air. GENERAL: Elderly man, in no acute distress. Awake and alert. LUNGS: Clear to auscultation bilaterally. No wheezes or crackles. NECK: Supple. No thyromegaly or cervical lymphadenopathy. No carotid bruits. CARDIOVASCULAR: Normal rate. Regular rhythm. No murmur. Normal S1 and S2. ABDOMEN: Soft and nontender. EXTREMITIES: No edema. LABORATORY DATA: WBC 6.44, hemoglobin 13.1, hematocrit 41.6, and platelets 186. Sodium 141, potassium 4.7, chloride 105, CO2 31, BUN 14, and creatinine 1.06. TSH 4.448. Troponin 0.07. Telemetry was personally reviewed and interpreted revealing normal sinus rhythm and sinus bradycardia with lowest heart rate 49 beats per minute. IMPRESSION: 1. Bradycardia, appears sinus, so far on telemetry. 2. Incarcerated right inguinal hernia, status post repair. 3. Schizoaffective disorder. RECOMMENDATIONS: Obtain echocardiogram. Assess the patient for chronotropic competence. We will have the patient ambulate in the hallway if heart rate rises appropriately and echo is normal. No further cardiac evaluation is indicated. Monitor on telemetry. Unfortunately, we did not capture the patient's lowest recorded heart rate in the 40s. We will assess overnight to see if telemetry will be revealing. If only sinus bradycardia is seen, no further cardiovascular will be indicated at that time. Thank you for this consult. We will continue to follow. Laurence Eduardo MD ABS/MODL /[id number]
--- NOTE | 2019-12-17 21:18 | NUR ---
{null, D/C paperwork completed. Papers signed by provider. Patient in very confused and unable to sign for himself. Patient went into another patient room and requested weed from her. Room 294. House sup will get taxi pass for patient to return to [facility]. }
--- NOTE | 2019-12-17 21:30 | NUR ---
{null, Patient D/C with provider. Via taxi. }
== END 2019-12-17 21:30 | disposition home or self-care (01) | DRG 351 ==
LOC: ER 22:02 → ERHOLD 12-15 02:05 → MED/SURG3 12-15 02:37 → OBSVTOIN 12-17 09:59
PROVIDERS: ADMIT Internal Medicine; ATTEND Internal Medicine
PROC: 0YU50JZ Supplement Right Inguinal Region with Synthetic Substitute, Open Approach (ICD-10-PCS; principal; 2019-12-16 14:48)
DX: K40.30 Unilateral inguinal hernia, with obstruction, without gangrene, not specified as recurrent (principal); N39.0 Urinary tract infection, site not specified; F41.9 Anxiety disorder, unspecified; D64.9 Anemia, unspecified; I10 Essential (primary) hypertension; R00.1 Bradycardia, unspecified; F25.9 Schizoaffective disorder, unspecified; Z11.59 Encounter for screening for other viral diseases
CPT/HCPCS: 36415; 74177; 80048; 80053; 81001; 84443; 84484; 85025; 87086; 87635; 96361; 99284; C1781; G0378; J1100; J2001; J2405; J3486; J7030; Q9967